=== PATIENT | female | born 1945 | race Caucasian/White ===

== ENCOUNTER 2016-11-20 09:09 | Emergency (ER) | payer OTHER ==
[2016-11-20] MEDS ORDERED: MORPHINE SULFATE INJ 2 MG ONE ×2 (09:42→10:44)
[2016-11-20] MEDS ORDERED: MORPHINE SULFATE INJ 2 MG IVP ONE ×2 (09:42→10:44)
--- NOTE | 2016-11-20 09:57 | DR.GENAD ---
HPI - PCP Primary Care Physician: mandy peraza - HPI Comment HPI Comment: HISTORY BELOW. - Complaint/Symptoms Chief Complaint Doctors Comments: FELL OFF HER BED WHILE SLEEPING AND HIT HER HEAD AND INJURED LOWER BACK. NO LOC. SEVERE PAIN REPORTED. PREBLEM AMBULATING. Chief Complaint:: patient stated she fell of her bed which is 4 foot high and hit her head. she denies any loc. - Nurses notes reviewed Nurses Notes Review: Yes - Source History Provided: Patient, EMS - Mode of Arrival Mode of Arrival: EMS - Timing Onset of Chief Complaint: 11/20/16 Came on: Suddenly - Duration Duration: Constant Duration: Hours - Severity Severity: Moderate PMH - PMH Past Medical History: Yes Past Medical History: Seizures Past Surgical History: Yes - Family History History of Family Medical Conditions: No - Social History Does patient currently use any type of tobacco product: No Have you used tobacco products in the last 12 months: No Type of Tobacco Use: None Does any household member use tobacco: No Alcohol Use: None Do you use any recreational Drugs:: No Lives With: Family Lives Where: Home - infectious screening In the last 2 months have you had wt loss of >10#?: NO Have you had fever, night sweats or hemotysis?: No Have you traveled outside the country in the last 6 months?: No Isolation: Standard ROS - Review of Systems Constitutional: Weakness, Fatigue. negative: Chills, Fever Eyes: No Symptoms Reported. negative: Eye Pain, Discharge ENTM: No Symptoms Reported Respiratoy: Non-Productive Cough, Short of Breath (on exertion). negative: Wheezing, Hemoptysis Cardiovascular: negative: Chest Pain Gastrointestinal/Abdominal: negative: Abdominal Pain, Nausea, Vomiting Genitourinary: negative: Dysuria, Frequency, Hematuria Neurological: Problems Walking Musculoskeletal: Back Pain, Muscle Pain, Back, Pelvis, Hip Integumentary: Other (post scalp hematoma size of orange.) Hematologic/Lymphatic: Easy Bruising Endocrine: No Symptoms Reported All Other Systems: Reviewed and Negative PE - Vital Signs Vitals: Temperature 97.9 F Pulse Rate 61 Respiratory Rate 18 Blood Pressure 138/65 O2 Sat by Pulse Oximetry 96 - General Limitations: No Limitations General Appearance: Alert - Head Head Exam: Other (posterior scalp hematoma, scalp pain) - Eyes Eye exam: Normal Appearance - ENT ENT Exam: Normal External Ear Exam External Ear Exam: Normal External Inspection TM/Canal Exam: Bilateral Normal Mouth Exam: Normal Inspection Throat Exam: Normal Inspection - Neck Neck Exam: Trachea Midline - Chest Chest Inspection: Symmetric Chest Wall Rise - Respiratory Respiratory Exam: Normal Lung Sounds Bilat Respiratory Exam: Bilateral Clear to Auscultation - Cardiovascular Cardiovascular Exam: Regular Rate, Normal Rhythm, Normal Heart Sounds - Abdominal Exam Abdominal Exam: Normal Bowel Sounds, Soft. negative: Tenderness - Extremities Extremities Exam: Tenderness (pelvic tenderness), Joint Swelling (hip tenderness ) - Back Back Exam: Paraspinal Tenderness, Vertebral Tenderness (lumbosacral tenderness) - Neurologic Neurological Exam: Alert, Oriented X3 - Psychiatric Psychiatric Exam: Anxious - Skin Skin Exam: Normal Color MDM - Additional Information Additional Information Obtained From: Family - Differential Diagnosis Differential Diagnosis: multiple contusion and sprain, lumbosacral strain, pelvic pain, scalp contu Course - Treatment Treatment: see orders. - Consultation Consultation Comments: discuss patient with dr. hernández. he will admit patient. - Education/Counseling Education/Counseling: Patient, Family, Education Educated On: Treatment, Diagnosis ROR - Labs Reviewed Laboratory Results Reviewed?: Yes Result Diagrams: 11/20/16 12:47 11/20/16 12:47 Laboratory: WBC 7.4 X10^3/uL (3.6-10.0) 11/20/16 12:47 RBC 4.21 X10^6/uL (3.5-5.4) 11/20/16 12:47 Hgb 12.3 g/dL (12.0-16.0) 11/20/16 12:47 Hct 37.0 % (36.0-47.0) 11/20/16 12:47 MCV 87.8 fL (80.0-100.0) 11/20/16 12:47 MCH 29.2 pg (27.0-34.0) 11/20/16 12:47 MCHC 33.3 g/dL (33.0-35.0) 11/20/16 12:47 RDW 13.6 % (11.6-16.5) 11/20/16 12:47 Plt Count 241 X10^3/uL (150.0-450.0) 11/20/16 12:47 MPV 8.7 fL (7.4-11.0) 11/20/16 12:47 Neut % 58.5 % (42.0-75.0) 11/20/16 12:47 Lymph % 24.6 % (21.0-51.0) 11/20/16 12:47 [place] % 10.3 % (0.0-13.0) 11/20/16 12:47 Eos % 5.7 % (0.9-2.9) H 11/20/16 12:47 Baso % 0.9 % (0.2-1.0) 11/20/16 12:47 Neut # 4.3 x10^3/uL (2.2-4.8) 11/20/16 12:47 Lymph # 1.8 X10^3/uL (1.3-2.9) 11/20/16 12:47 [place] # 0.8 x10^3/uL (0.3-0.8) 11/20/16 12:47 Eos # 0.4 x10^3/uL (0.0-0.2) H 11/20/16 12:47 Baso # 0.1 X10^3/uL (0.0-0.1) 11/20/16 12:47 Absolute Nucleated RBC 0.0 /100WBC 11/20/16 12:47 Sodium 139 mmol/L (136-145) 11/20/16 12:47 Corrected Sodium TNP 11/20/16 12:47 Potassium 4.6 mmol/L (3.5-5.1) 11/20/16 12:47 Chloride 103 mmol/L (98-107) 11/20/16 12:47 Carbon Dioxide 32.3 mmol/L (21-32) H 11/20/16 12:47 BUN 14 mg/dL (7-18) 11/20/16 12:47 Creatinine 0.93 mg/dL (0.55-1.02) 11/20/16 12:47 Est GFR (MDRD) Af Amer > 60 (>60) 11/20/16 12:47 Est GFR (MDRD) Non-Af > 60 (>60) 11/20/16 12:47 Glucose 88 mg/dL (65-99) 11/20/16 12:47 Calcium 8.0 mg/dL (8.5-10.1) L 11/20/16 12:47 - XRAY XRAY Interpreted by: Radiologist XRAY Findings: report noted and discuss with patient and her family. - Diagnosis Discharge Problem: Intractable pain, Multiple contusions, Multiple sprains, Pelvic pain Lumbosacral strain Qualifiers: Encounter type: initial encounter Qualified Code(s): S39.012A - Strain of muscle, fascia and tendon of lower back, initial encounter Scalp contusion Qualifiers: Encounter type: initial encounter Qualified Code(s): S00.03XA - Contusion of scalp, initial encounter Scalp hematoma Qualifiers: Encounter type: initial encounter Qualified Code(s): S00.03XA - Contusion of scalp, initial encounter - Discharge Plan Condition: Stable - Follow ups/Referrals - Instructions
--- NOTE | 2016-11-20 10:21 | CT ---
HEAD CT WITHOUT IV CONTRAST CLINICAL INDICATION: Fall with posterior head trauma and hematoma TECHNIQUE: Axial CT images from skull base to vertex without IV contrast.Dose reduction techniques i ncluding Automated Exposure Control (AEC) and adjustment of mA and kV were utlized. COMPARISON: None FINDINGS: There is no abnormal brain parenchymal density. There is no evidence of acute infarction, intracran ial hemorrhage, mass or mass effect, or abnormal extra-axial collection. The density of the larger d ural venous sinuses is normal. The ventricles are normal in size, shape and position. The skull base and calvarium are normal. The included paranasal sinuses and mastoid air cells are predominantly cl ear. Posterior scalp hematoma present. IMPRESSION: 1. No acute intracranial abnormality. Reported By:
--- NOTE | 2016-11-20 10:39 | CT ---
CT pelvis without contrast Indication: Fall from bed with lower back and coccygeal pain Comparison: None available Technique: Multiple axial images of the pelvis were obtained from the iliac crest to the proximal th igh without administration of IV contrast. Sagittal and coronal reformats were performed and review ed. Radiation dose reduction techniques were performed utilizing adjustment for MA/kVP based on patient body size. Findings: There is no acute fracture within the superior sacrum. The inferior sacrum and coccyx demonstrates b tara remodeling and expansion of the dural sac with subtle cortical irregularity within the left and right paramedian sacral body and coccyx for which either bony remodeling or nondisplaced fractures a re considerations. There is no significant prevertebral soft tissue swelling in this location. There is moderate right and mild to moderate left-sided femoral acetabular osteoarthrosis without acute f racture of the acetabulum femoral head or femoral neck. Pubic symphysis and SI joints demonstrate de generative change without fracture or diastases. Imaging of the abdomen and pelvis demonstrates no a cute inflammatory process. Please see separate CT report for description of lumbar spine findings. IMPRESSION: 1.Moderate bony remodeling and expansion of the thecal sac of the inferior sacrum and coccyx is inde terminate, potentially this represents dural ectasia however the sacrococcygeal mass is also a consi deration for which correlation with contrast-enhanced sacral MRI is recommended for further evaluati on. Given the bony remodeling and cortical irregularity the possibility of a nondisplaced inferior s acral and superior coccygeal fracture cannot be excluded by this examination. There is no large mukund ghislaine or significant presacral soft tissue stranding identified. 2. Moderate right and mild to moderate left-sided femoral acetabular osteoarthrosis without acute fr acture or the abnormal positioning of the femoral heads. Reported By:
--- NOTE | 2016-11-20 10:49 | CT ---
HISTORY: Injury, fall, low back pain Study: CT lumbar spine without contrast Comparison: None Technique: Axial non contrast images with coronal and sagittal reformats. Dose reduction procedures were used with MA/kv adjusted for body size. Findings: The bones are osteopenic. The alignment is normal. The vertebral bodies are of average height. No co mpression fractures are identified. The pedicles, spinous processes, and posterior elements are inta ct. Those portions of the SI joints visualized were normal. That portion of the sacrum visualized wa s normal with the exception of expansion of the sacral spinal canal described in detail on the recen t CT of the pelvis. The disc levels are evaluated as follows: L1-2 level: No evidence for compressive disc disease. The neural foramina are patent. The joints are normal. L2-3 level: No evidence for compressive disc disease. The neural foramina are patent. Bilateral face t arthropathy is present. L3-4 level: There is broad-based disc protrusion which contributes along with ligamentous hypertroph y facet arthropathy and pedicular shortening to a relative spinal stenosis with lateral recess and f oraminal narrowing bilaterally . L4-5 level: Broad-based disc protrusion effaces the thecal sac and contributes along with ligamentou s hypertrophy and facet arthropathy to a relative spinal stenosis with lateral recess and foraminal narrowing bilaterally. L5-S1 level: Broad-based disk bulging effaces the thecal sac and abuts but does not displace the S1 nerve roots. There is spondylitic foraminal narrowing bilaterally. Bilateral facet arthropathy is pr esent. IMPRESSION: As above Reported By:
[2016-11-20 12:58] LABS: BASOPHILS # (AUTO) 0.1 X10^3/uL (0.0-0.1); BASOPHILS % (AUTO) 0.9 % (0.2-1.0); EOSINOPHILS # (AUTO) 0.4 x10^3/uL (0.0-0.2); EOSINOPHILS % (AUTO) 5.7 % (0.9-2.9); HEMOGLOBIN 12.3 g/dL (12.0-16.0); LYMPHOCYTES # (AUTO) 1.8 X10^3/uL (1.3-2.9); LYMPHOCYTES % (AUTO) 24.6 % (21.0-51.0); MEAN CORPUSCULAR HEMOGLOBIN 29.2 pg (27.0-34.0); MEAN CORPUSCULAR HGB CONC 33.3 g/dL (33.0-35.0); MEAN CORPUSCULAR VOLUME 87.8 fL (80.0-100.0); MEAN PLATELET VOLUME 8.7 fL (7.4-11.0); MONOCYTES # (AUTO) 0.8 x10^3/uL (0.3-0.8); MONOCYTES % (AUTO) 10.3 % (0.0-13.0); NEUTROPHILS # (AUTO) 4.3 x10^3/uL (2.2-4.8); NEUTROPHILS % (AUTO) 58.5 % (42.0-75.0); PLATELET COUNT 241 X10^3/uL (150.0-450.0); RED BLOOD COUNT 4.21 X10^6/uL (3.5-5.4); RED CELL DISTRIBUTION WIDTH 13.6 % (11.6-16.5); WHITE BLOOD COUNT 7.4 X10^3/uL (3.6-10.0)
[2016-11-20 12:59] LABS: BLOOD UREA NITROGEN 14 mg/dL (7-18); CARBON DIOXIDE 32.3 mmol/L (21-32); CHLORIDE 103 mmol/L (98-107); CREATININE 0.93 mg/dL (0.55-1.02); GLUCOSE 88 mg/dL (65-99); SODIUM 139 mmol/L (136-145); eGFR BLACK RACES > 60 (>60); eGFR NON BLACK RACES > 60 (>60)
[2016-11-20] MEDS ORDERED: ZOFRAN INJ 4 MG VIAL IVP PRN (13:07)
[2016-11-20] MEDS ORDERED: MORPHINE SULFATE INJ 4 MG IVP PRN (13:07)
[2016-11-20 14:18] LABS: ALANINE AMINOTRANSFERASE 15 Units/L (12-78); ALKALINE PHOSPHATASE 82 Units/L (46-116); ASPARTATE AMINO TRANSFERASE 19 Units/L (15-37); COR CA(FOR HYPOALB) 8.8 mg/dL (8.5-10.1); TOTAL PROTEIN 6.3 g/dL (6.4-8.2)
[2016-11-20] MEDS: NS 1000 ML 1,000 ML IV SCH (14:31)
[2016-11-20 16:20] LABS: BILIRUBIN,URINE NEGATIVE (NEGATIVE); BLOOD/HEMOGLOBIN,URINE NEGATIVE (NEGATIVE); GLUCOSE, URINE NEGATIVE (NEGATIVE); KETONES,URINE NEGATIVE (NEGATIVE); LEUKOCYTE ESTERASE ,URINE 2+ (NEGATIVE); NITRITES,URINE NEGATIVE (NEGATIVE); PROTEIN,URINE NEGATIVE (NEGATIVE); UROBILINOGEN,URINE NORMAL (NORMAL)
[2016-11-20 16:27] LABS: APPEARANCE,URINE HAZY (CLEAR); BACTERIA,URINE TRACE /HPF (NEGATIVE); COLOR,URINE YELLOW (YELLOW); RBC,URINE 0-2 /HPF (NEGATIVE); SQUAMOUS EPITHELIAL CELL,UR FEW /HPF (NEGATIVE)
[2016-11-20] MEDS ORDERED: ULTRAM PO PRN (17:21)
[2016-11-20] MEDS ORDERED: TESSALON PERLES PO PRN (17:59)
[2016-11-20] MEDS ORDERED: COLCRYS TAB 0.6 MG PO PRN (18:00)
[2016-11-20] MEDS ORDERED: NAPROSYN PO PRN (18:16)
[2016-11-20 18:55] VITALS: BMI 47.2
[2016-11-20] MEDS ORDERED: [UNRECOGNIZED DRUG - OTHER] PO SCH (21:00)
[2016-11-20] MEDS ORDERED: COLCRYS TAB 0.6 MG PO SCH (21:00)
[2016-11-20] MEDS ORDERED: NAPROSYN PO SCH ×2 (21:00)
[2016-11-20] MEDS ORDERED: MYSOLINE PO SCH (21:00)
[2016-11-20] MEDS: ESTRACE PO SCH (21:30)
[2016-11-20] MEDS: INDERAL TAB 10 MG PO SCH (21:31)
[2016-11-20] MEDS: FLEXERIL TAB 10 MG PO SCH (21:31)
[2016-11-20] MEDS: MYSOLINE PO SCH (21:34)
[2016-11-20] MEDS: ZANTAC PO SCH (21:35)
[2016-11-20] MEDS: PriLOSEC PO SCH (21:35)
[2016-11-20] MEDS: SINEMET (PLAIN) 25/100 MG PO SCH (21:36)
[2016-11-20] MEDS ORDERED: TESSALON PERLES PO SCH (22:00)
[2016-11-21] MEDS: NS 1000 ML 1,000 ML IV SCH ×2 (02:18→15:13)
[2016-11-21 05:30] LABS: ALANINE AMINOTRANSFERASE 10 Units/L (12-78); ALBUMIN 2.7 g/dL (3.4-5.0); ALKALINE PHOSPHATASE 69 Units/L (46-116); ASPARTATE AMINO TRANSFERASE 14 Units/L (15-37); BLOOD UREA NITROGEN 11 mg/dL (7-18); CALCIUM 7.8 mg/dL (8.5-10.1); CARBON DIOXIDE 28.7 mmol/L (21-32); CHLORIDE 107 mmol/L (98-107); COR CA(FOR HYPOALB) 8.8 mg/dL (8.5-10.1); CREATININE 0.87 mg/dL (0.55-1.02); GLUCOSE 90 mg/dL (65-99); SODIUM 142 mmol/L (136-145); TOTAL PROTEIN 5.8 g/dL (6.4-8.2); eGFR BLACK RACES > 60 (>60); eGFR NON BLACK RACES > 60 (>60)
[2016-11-21 05:34] LABS: BASOPHILS % (AUTO) 0.5 % (0.2-1.0); EOSINOPHILS # (AUTO) 0.4 x10^3/uL (0.0-0.2); EOSINOPHILS % (AUTO) 6.8 % (0.9-2.9); HEMATOCRIT 34.3 % (36.0-47.0); HEMOGLOBIN 11.4 g/dL (12.0-16.0); LYMPHOCYTES # (AUTO) 2.4 X10^3/uL (1.3-2.9); MEAN CORPUSCULAR HEMOGLOBIN 29.2 pg (27.0-34.0); MEAN CORPUSCULAR HGB CONC 33.1 g/dL (33.0-35.0); MEAN CORPUSCULAR VOLUME 88.2 fL (80.0-100.0); MONOCYTES # (AUTO) 0.8 x10^3/uL (0.3-0.8); MONOCYTES % (AUTO) 11.5 % (0.0-13.0); NEUTROPHILS % (AUTO) 45.2 % (42.0-75.0); PLATELET COUNT 215 X10^3/uL (150.0-450.0); RED BLOOD COUNT 3.89 X10^6/uL (3.5-5.4); RED CELL DISTRIBUTION WIDTH 13.8 % (11.6-16.5); WHITE BLOOD COUNT 6.6 X10^3/uL (3.6-10.0)
[2016-11-21] MEDS: SINEMET (PLAIN) 25/100 MG PO SCH ×3 (05:55→21:19)
[2016-11-21] MEDS ORDERED: ESTRACE PO SCH (09:00)
[2016-11-21] MEDS ORDERED: LASIX PO SCH (09:00)
[2016-11-21] MEDS: INDERAL TAB 10 MG PO SCH ×4 (09:11→21:22)
[2016-11-21] MEDS: MYSOLINE PO SCH ×2 (09:12→21:19)
[2016-11-21] MEDS: PriLOSEC PO SCH ×2 (09:12→21:18)
[2016-11-21] MEDS: LASIX PO SCH (09:12)
[2016-11-21] MEDS: ZESTRIL TAB 10 MG PO SCH (09:12)
--- NOTE | 2016-11-21 14:18 | DR.H&P ---
H&P - History & Physical for Day of: H&P Date: 11/20/16 - Chief Complaint Chief Complaint: FALL, HEAD INJURY, LOWER BACK PAIN - Allergies Allergies/Adverse Reactions: Allergies Allergy/AdvReac Type Severity Reaction Status Date / Time Cephalexin [From Keflex] Allergy Verified 01/13/15 09:44 Oxytetracycline Allergy Verified 01/13/15 09:44 [From Terramycin Vaginal] Polymyxin B Allergy Verified 01/13/15 09:44 [From Terramycin Vaginal] - History of Present Illness History of Present Illness: THIS IS A 71 YEAR OLD FEMALE, WHO IS A PATIENT OF OURS. SHE PRESENTS TO THE EMERGENCY ROOM, VIA EMS, WITH COMPLAINTS OF A FALLING OFF HER BED AT HOME AND HITTING HER HEAD AND BACK PAIN. SHE STATES HER BED IS APPROXIMATELY FOUR FEET HIGH AND SHE FELL OFF AND HIT A CONCRETE FLOOR. SHE DENIES LOSS OF CONSCIOUSNESS. ON EXAMINATION, A SCALP HEMATOMA AND CONTUSION IS NOTED TO HER HEAD. SHE REPORTS SEVERE BACK PAIN ON ARRIVAL TO ER AND SHE IS NOTED WITH AN UNSTEADY GAIT. LABS AND CT OBTAINED. CBC WNL. CMP WNL EXCEPT: CARBON DIOXIDE 32.3, CALCIUM 8.0, TOT PROTEIN 6.3, ALBUMIN 3.0. URINALYSIS WNL. BRAIN CT REPROTS NO ACUTE INTRACRANIAL ABNORMALITY. CT OF LUMBAR SPINE REPORTS NO COMPRESSION FRACUTRES IDENITIFIED. CT OF PELVIS REPORTS BONY REMODELING AND CORTICAL IRREGULARITY; POSSIBLITY OF A NONDISPLACED INFERIOR SACRAL AND SUPERIOR COCCYGEAL FRACTURE CANNOT BE EXCLUDED; MODERATE RIGHT AND MILD TO MODERATE LEFT-SIDED FEMORAL ACETABULAR OSTEOARTHROSIS WITHOUT ACUTE FRACTURE OR ABNORMAL POSITIONING OF THE FEMORAL HEADS. WE WILL ADMIT PATIENT FOR FURTHER TREATMENT AND EVALUATION. WE WILL FOLLOW UP IN AM WITH LABS. - Past Medical History Past Medical History: Anxiety, Arthritis, Depression, GERD, Gout, Hypertension, Seizures Additional Medical History: Ear Infections, Epilepsy, Bronchitis, Pneumonia, Diarrhea, Urinary Tract Infections, Back Pain, Skin Cancer - Past Surgical History Surgical History: Hysterectomy, Joint Replacement, Other Additional Surgical History: Lapband, Right TKA, Removal of Skin Cancer - Family History Family Medical History: Diabetes Mellitus, Cancer, [place], Coronary Artery Disease, Hypertension - Social History Does patient currently use any type of tobacco product: No Have you used tobacco products in the last 12 months: No Type of Tobacco Use: Cigarettes How many years tobacco product used: 43 Does any household member use tobacco: No Alcohol Use: None Drug Use: Prescription Drugs - Medications Home Medications: Cyclobenzaprine HCl [FLEXERIL 10 MG *] 10 mg PO HS 01/13/15 Diclofenac Sodium [Diclofenac Sodium Dr] 50 mg PO BID 01/13/15 Ergocalciferol [Vitamin D] 50,000 unt PO WEEKLY 01/13/15 Estradiol 0.5 mg PO HS 01/13/15 Furosemide [LASIX TAB 40 MG *] 60 mg PO QAM 01/13/15 Lisinopril 10 mg PO DAILY 01/13/15 Omeprazole [PRILOSEC 20 MG *] 20 mg PO BID 01/13/15 Ranitidine HCl [Zantac] 300 mg PO HS 01/13/15 Benzonatate 100 mg PO TID PRN 11/20/16 Carbamazepine [Tegretol] 200 mg PO DAILY 11/20/16 Carbidopa-Levodopa 25/100 mg [Sinemet (Plain) 25/100 mg] 1 tab PO TID Colchicine [Colcrys Tab 0.6 mg] 1 tab PO BID PRN 11/20/16 Primidone 100 mg PO BID 11/20/16 Propranolol HCl 80 mg PO QID 11/20/16 Tramadol HCl 50 - 100 mg PO Q6HR PRN 11/20/16 - Review of Systems Constitutional: Weakness, Malaise Eyes: No Symptoms Reported. denies: Pain, Vision Change, Conjunctivae Inflammation, Eyelid Inflammation, Redness ENT: No Symptoms Reported. denies: Ear Pain, Ear Discharge, Nose Pain, Nose Discharge, Nose Congestion, Mouth Pain, Mouth Swelling, Throat Pain, Throat Swelling Respiratory: No Symptoms Reported. denies: Cough, Shortness of Breath, Hemoptysis, SOB with Excertion, Pleuritic Pain, Sputum, Wheezing Cardiovascular: No Symptoms Reported. denies: Chest Pain, Palpitations, Orthopnea, Paroxysmal Noc. Dyspnea, Edema, Light Headedness Gastrointestinal: No Symptoms Reported. denies: Nausea, Vomiting, Abdominal Pain, Diarrhea, Constipation, Melena, Hematochezia Genitourinary: No Symptoms Reported. denies: Dysuria, Frequency, Incontinence, Hematuria, Retention Musculoskeletal: Back Pain, Other (Sacral Pain; Pelvis Pain; Head Ache) Skin: No Symptoms Reported. denies: Rash, Lesions, Jaundice, Bruising, Wound, Ecchymosis Neurological: No Symptoms Reported. denies: Weakness, Numbness, Incoordination , Change in Speech, Confusion, Seizures - Physical Exam Vital Signs: Temperature 97.8 F Pulse Rate [Right Brachial] 60 Respiratory Rate 22 Blood Pressure [Right Arm] 121/58 O2 Sat by Pulse Oximetry 95 Oriented: Normal, Time, Person, Place Eyes: Normal. negative: Blurred Vision, Diplopia, Discharge, Pain, Redness, Photophobia Ear: Normal. negative: Swelling, Ecchymosis, Hemotypanum, Abrasion, Laceration Nose: Normal. negative: Injected, Discharge, Blood Throat: Normal. negative: Tonsillar Hypertrophy, Red, Exudate Respiratory: Clear Throughout Cardiovascular: Normal. negative: Murmur, Edema : Normal. negative: Dysuria, Hematuria, Frequency, Discharge, Bleeding, Auscultation: Bowel Sounds: Normal. negative: Bruit Palpation: Normal. negative: Spleen Enlarged, Liver Enlarged, Mass Pulsatile Tenderness: Normal. negative: Rebound, Guarding, Rigidity Skin: Bruising (Scattered) Musculoskeletal: Back:Lumbar (Sacal), Pelvis, Tender, Instability. negative: Deformity, Pulse Deficit, Motor Deficit, Sensory Deficit Psychiatric: Normal Mood Description: Calm, Appropriate Affect: Normal Speech Pattern: Clear, Appropriate - Assessment/Plan (1) Intractable pain Status: Acute Plan: ADMIT PATIENT, START MORPHINE IV NEEDED, NAPROXEN, CONSULT PHYSICAL THERAPY, IV FLUIDS, MONITOR. (2) Lumbosacral strain Qualifiers: Encounter type: initial encounter Qualified Code(s): S39.012A - Strain of muscle, fascia and tendon of lower back, initial encounter Status: Acute Plan: ABOVE. (3) Multiple contusions Status: Acute Plan: ABOVE. (4) Multiple sprains Status: Acute Plan: ABOVE. (5) Pelvic pain Status: Acute Plan: ABOVE. (6) Scalp contusion Qualifiers: Encounter type: initial encounter Qualified Code(s): S00.03XA - Contusion of scalp, initial encounter Status: Acute Plan: CONTINUE TO MONITOR. (7) Scalp hematoma Qualifiers: Encounter type: initial encounter Qualified Code(s): S00.03XA - Contusion of scalp, initial encounter Status: Acute Plan: CONTINUE TO MONITOR. (8) Back pain Qualifiers: Back pain location: low back pain Chronicity: acute Back pain laterality : bilateral Sciatica presence: without sciatica Sciatica laterality: S Qualified Code(s): M54.5 - Low back pain Status: Chronic Plan: ABOVE. (9) HTN (hypertension) Qualifiers: Hypertension type: essential hypertension Qualified Code(s): I10 - Essential (primary) hypertension Status: Chronic (10) GERD (gastroesophageal reflux disease) Qualifiers: Esophagitis presence: esophagitis presence not specified Qualified Code(s) : K21.9 - Gastro-esophageal reflux disease without esophagitis Status: Chronic (11) Gout Qualifiers: Gout site: multiple sites Gout etiology: G Encounter type: E Laterality : L Chronicity: C Presence of tophus: P Status: Chronic (12) Arthritis Status: Chronic
[2016-11-21] MEDS ORDERED: COLACE CAP 100 MG PO SCH (15:00)
--- NOTE | 2016-11-21 15:05 | PCM.PROG ---
Progress Note - Progress Note for Day of Date: 11/21/16 - Subjective Subjective: PATIENT CONTINUES TO REPORTS PELVIC PAIN AND GENERALIZED MUSCLE PAIN. THE SCALP HEMATOMA AND CONTUSION IS HEALING AND REDUCING IN SIZE. ON EXAMINATION, PELVIS IS NOTED WITH MODERATE TENDERNESS AND LUMBAR BACK PAIN IS MODERATELY TENDER. PATIENT IS RECEIVING MORPHINE IV FOR PAIN ALONG WITH FLEXERIL AND NAPROXEN. CT OF PELVIS YESTERDAY COULD NOT RULE OUT A PELVIC FRACTURE. CBC WNL EXCEPT: H/H 11.4/34.3. CMP WNL EXCEPT: CALCIUM 7.8, TOT PROTEIN 5.8, ALBUMIN 2.7. WE WILL PLAN FOR AN MRI OF PELVIS TODAY, CONTINUE CURRENT TREATMENT, AND FOLLOW UP IN AM WITH LABS. - Past Medical Family Social History Past Med/Fam/Surg Hx: No changes since H&P Allergies: Allergies Cephalexin [From Keflex] Allergy (Verified 01/13/15 09:44) Oxytetracycline [From Terramycin Vaginal] Allergy (Verified 01/13/15 09:44) Polymyxin B [From Terramycin Vaginal] Allergy (Verified 01/13/15 09:44) - Review of Systems ROS: No change since H&P - Vital Signs and I&O's Vital Signs: Temperature 97.8 F Pulse Rate [Right Brachial] 60 Respiratory Rate 22 Blood Pressure [Right Arm] 121/58 O2 Sat by Pulse Oximetry 95 Intake and Output: Intake & Output 11/19/16 11/20/16 11/21/16 11/22/16 11:59 11:59 11:59 11:59 Intake Total 1280 1320 Output Total 601 1250 Balance 679 70 - Physical Exam Oriented: Normal, Time, Person, Place Eyes: Normal. negative: Blurred Vision, Diplopia, Discharge, Pain, Redness, Photophobia Ear: Normal. negative: Swelling, Ecchymosis, Hemotypanum, Abrasion, Laceration Nose: Normal. negative: Injected, Discharge, Blood Throat: Normal. negative: Tonsillar Hypertrophy, Red, Exudate Cardiovascular: Normal. negative: Murmur, Edema : Normal. negative: Dysuria, Hematuria, Frequency, Discharge, Bleeding, Auscultation: Bowel Sounds: Normal. negative: Bruit Palpation: Normal. negative: Spleen Enlarged, Liver Enlarged, Mass Pulsatile Tenderness: Normal. negative: Rebound, Guarding, Rigidity Skin: Bruising (Scattered) Musculoskeletal: Back:Lumbar (Sacal), Pelvis, Tender, Instability. negative: Deformity, Pulse Deficit, Motor Deficit, Sensory Deficit Psychiatric: Normal Mood Description: Calm, Appropriate Affect: Normal Speech Pattern: Clear, Appropriate - Laboratory and Diagnostics Result Diagrams: 11/21/16 04:40 11/21/16 04:40 Labs: Laboratory WBC 6.6 X10^3/uL (3.6-10.0) 11/21/16 04:40 RBC 3.89 X10^6/uL (3.5-5.4) 11/21/16 04:40 Hgb 11.4 g/dL (12.0-16.0) L 11/21/16 04:40 Hct 34.3 % (36.0-47.0) L 11/21/16 04:40 MCV 88.2 fL (80.0-100.0) 11/21/16 04:40 MCH 29.2 pg (27.0-34.0) 11/21/16 04:40 MCHC 33.1 g/dL (33.0-35.0) 11/21/16 04:40 RDW 13.8 % (11.6-16.5) 11/21/16 04:40 Plt Count 215 X10^3/uL (150.0-450.0) 11/21/16 04:40 MPV 9.0 fL (7.4-11.0) 11/21/16 04:40 Neut % 45.2 % (42.0-75.0) 11/21/16 04:40 Lymph % 36.0 % (21.0-51.0) 11/21/16 04:40 [place] % 11.5 % (0.0-13.0) 11/21/16 04:40 Eos % 6.8 % (0.9-2.9) H 11/21/16 04:40 Baso % 0.5 % (0.2-1.0) 11/21/16 04:40 Neut # 3.0 x10^3/uL (2.2-4.8) 11/21/16 04:40 Lymph # 2.4 X10^3/uL (1.3-2.9) 11/21/16 04:40 [place] # 0.8 x10^3/uL (0.3-0.8) 11/21/16 04:40 Eos # 0.4 x10^3/uL (0.0-0.2) H 11/21/16 04:40 Baso # 0.0 X10^3/uL (0.0-0.1) 11/21/16 04:40 Absolute Nucleated RBC 0.1 /100WBC 11/21/16 04:40 Sodium 142 mmol/L (136-145) 11/21/16 04:40 Corrected Sodium TNP 11/21/16 04:40 Potassium 4.4 mmol/L (3.5-5.1) 11/21/16 04:40 Chloride 107 mmol/L (98-107) 11/21/16 04:40 Carbon Dioxide 28.7 mmol/L (21-32) 11/21/16 04:40 BUN 11 mg/dL (7-18) 11/21/16 04:40 Creatinine 0.87 mg/dL (0.55-1.02) 11/21/16 04:40 Est GFR (MDRD) Af Amer > 60 (>60) 11/21/16 04:40 Est GFR (MDRD) Non-Af > 60 (>60) 11/21/16 04:40 Glucose 90 mg/dL (65-99) 11/21/16 04:40 Calcium 7.8 mg/dL (8.5-10.1) L 11/21/16 04:40 Corrected Calcium 8.8 mg/dL (8.5-10.1) 11/21/16 04:40 Total Bilirubin 0.20 mg/dL (0.2-1.0) 11/21/16 04:40 AST 14 Units/L (15-37) L 11/21/16 04:40 ALT 10 Units/L (12-78) L 11/21/16 04:40 Alkaline Phosphatase 69 Units/L (46-116) 11/21/16 04:40 Total Protein 5.8 g/dL (6.4-8.2) L 11/21/16 04:40 Albumin 2.7 g/dL (3.4-5.0) L 11/21/16 04:40 Globulin 3.1 g/dL (2.5-4.5) 11/21/16 04:40 Albumin/Globulin Ratio 0.9 Ratio (1.1-2.1) L 11/21/16 04:40 Specimen Type Clean catch urine 11/20/16 15:57 Urine Color Yellow (YELLOW) 11/20/16 15:57 Urine Appearance Hazy (CLEAR) 11/20/16 15:57 Urine pH 6.0 (5.0 - 8.0) 11/20/16 15:57 Ur Specific [place] 1.010 (1.000-1.030) 11/20/16 15:57 Urine Protein Negative (NEGATIVE) 11/20/16 15:57 Urine Glucose (UA) Negative (NEGATIVE) 11/20/16 15:57 Urine Ketones Negative (NEGATIVE) 11/20/16 15:57 Urine Occult Blood Negative (NEGATIVE) 11/20/16 15:57 Urine Nitrite Negative (NEGATIVE) 11/20/16 15:57 Urine Bilirubin Negative (NEGATIVE) 11/20/16 15:57 Urine Urobilinogen Normal (NORMAL) 11/20/16 15:57 Ur Leukocyte Esterase 2+ (NEGATIVE) 11/20/16 15:57 Urine RBC 0-2 /HPF (NEGATIVE) 11/20/16 15:57 Urine WBC 3-5 /HPF (NEGATIVE) 11/20/16 15:57 Ur Squamous Epith Cells Few /HPF (NEGATIVE) 11/20/16 15:57 Urine Bacteria Trace /HPF (NEGATIVE) 11/20/16 15:57 Ur Culture Indicated? No/not indicated 11/20/16 15:57 - Plan (1) Intractable pain Status: Acute Plan: CONTINUE MORPHINE IV NEEDED, NAPROXEN, FLEXERIL, CONSULT PHYSICAL THERAPY, IV FLUIDS, MONITOR. (2) Lumbosacral strain Status: Acute Qualifiers: Encounter type: initial encounter Qualified Code(s): S39.012A - Strain of muscle, fascia and tendon of lower back, initial encounter Plan: ABOVE. (3) Multiple contusions Status: Acute Plan: ABOVE. (4) Multiple sprains Status: Acute Plan: ABOVE. (5) Pelvic pain Status: Acute Plan: ABOVE. (6) Scalp contusion Status: Acute Qualifiers: Encounter type: initial encounter Qualified Code(s): S00.03XA - Contusion of scalp, initial encounter Plan: CONTINUE TO MONITOR. (7) Scalp hematoma Status: Acute Qualifiers: Encounter type: initial encounter Qualified Code(s): S00.03XA - Contusion of scalp, initial encounter Plan: CONTINUE TO MONITOR. (8) Back pain Status: Chronic Qualifiers: Back pain location: low back pain Chronicity: acute Back pain laterality : bilateral Sciatica presence: without sciatica Sciatica laterality: S Qualified Code(s): M54.5 - Low back pain Plan: ABOVE. (9) HTN (hypertension) Status: Chronic Qualifiers: Hypertension type: essential hypertension Qualified Code(s): I10 - Essential (primary) hypertension (10) GERD (gastroesophageal reflux disease) Status: Chronic Qualifiers: Esophagitis presence: esophagitis presence not specified Qualified Code(s) : K21.9 - Gastro-esophageal reflux disease without esophagitis (11) Gout Status: Chronic Qualifiers: Gout site: multiple sites Gout etiology: G Encounter type: E Laterality : L Chronicity: C Presence of tophus: P (12) Arthritis Status: Chronic
[2016-11-21] MEDS ORDERED: MILK OF MAGNESIA PO SCH (17:00)
[2016-11-21] MEDS ORDERED: MIRALAX POWDER (1 DOSE 17GM) PO SCH (21:00)
[2016-11-21] MEDS: ZANTAC PO SCH (21:18)
[2016-11-21] MEDS: FLEXERIL TAB 10 MG PO SCH (21:18)
[2016-11-21] MEDS: ESTRACE PO SCH (21:18)
[2016-11-21] MEDS: TORADOL 30 MG VIAL IVP PRN (21:48)
[2016-11-22] MEDS: TORADOL 30 MG VIAL IVP PRN (04:24)
[2016-11-22] MEDS: NS 1000 ML 1,000 ML IV SCH (04:24)
[2016-11-22 05:19] LABS: ALANINE AMINOTRANSFERASE 8 Units/L (12-78); ALBUMIN 2.8 g/dL (3.4-5.0); ALKALINE PHOSPHATASE 68 Units/L (46-116); ASPARTATE AMINO TRANSFERASE 12 Units/L (15-37); BLOOD UREA NITROGEN 13 mg/dL (7-18); CARBON DIOXIDE 30.6 mmol/L (21-32); CHLORIDE 107 mmol/L (98-107); CREATININE 1.06 mg/dL (0.55-1.02); GLUCOSE 91 mg/dL (65-99); SODIUM 145 mmol/L (136-145); TOTAL PROTEIN 6.2 g/dL (6.4-8.2); eGFR BLACK RACES > 60 (>60); eGFR NON BLACK RACES 54 (>60)
[2016-11-22] MEDS: SINEMET (PLAIN) 25/100 MG PO SCH ×2 (05:19→14:28)
[2016-11-22 05:22] LABS: BASOPHILS # (AUTO) 0.1 X10^3/uL (0.0-0.1); BASOPHILS % (AUTO) 0.7 % (0.2-1.0); EOSINOPHILS # (AUTO) 0.5 x10^3/uL (0.0-0.2); EOSINOPHILS % (AUTO) 5.5 % (0.9-2.9); HEMATOCRIT 36.4 % (36.0-47.0); LYMPHOCYTES # (AUTO) 2.2 X10^3/uL (1.3-2.9); LYMPHOCYTES % (AUTO) 26.6 % (21.0-51.0); MEAN CORPUSCULAR HGB CONC 33.1 g/dL (33.0-35.0); MEAN CORPUSCULAR VOLUME 87.5 fL (80.0-100.0); MONOCYTES # (AUTO) 0.9 x10^3/uL (0.3-0.8); MONOCYTES % (AUTO) 11.1 % (0.0-13.0); NEUTROPHILS # (AUTO) 4.6 x10^3/uL (2.2-4.8); NEUTROPHILS % (AUTO) 56.1 % (42.0-75.0); PLATELET COUNT 241 X10^3/uL (150.0-450.0); RED BLOOD COUNT 4.15 X10^6/uL (3.5-5.4); RED CELL DISTRIBUTION WIDTH 13.9 % (11.6-16.5); WHITE BLOOD COUNT 8.2 X10^3/uL (3.6-10.0)
--- NOTE | 2016-11-22 08:50 | MRI ---
MRI pelvis with contrast Indication: Pelvic pain after recent fall. Bony remodeling on CT. Comparison: CT pelvis 11/20/2016 Technique: Multiplanar, multisequence MR images of the pelvis were obtained before and after IV cont rast administration. Findings: There is re-demonstration of the chronic appearing bony remodeling about the sacrococcygea l junction associated with canal and neural foraminal expansion, related to thecal sac enlargement. No definite soft tissue mass or suspicious enhancement identified. No displaced fra cture is seen. There is some mild periarticular edema about the right SI joint, likely secondary to degenerative disease. There are degenerative changes of the hips, slightly worse on the right, where there is a small join t effusion noted, likely reactive. There is no acute hip fracture or subluxation. Mild gluteus mediu s tendinosis is noted bilaterally. There is insertional hamstring tendinopathy, worse on the right. Impression: 1. 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 No acute skeletal injury or aggressive osseous lesion identified. 2. Degenerative changes of the hips, right greater than left. Bilateral gluteus medius tendinosis, h amstring tendinopathy. Reported By:
[2016-11-22] MEDS ORDERED: PROTONIX INJ 40 MG VIAL IVP SCH (09:17)
[2016-11-22] MEDS: PATIENT'S HOME MEDICATION PO SCH ×2 (09:32→13:45)
[2016-11-22] MEDS: ZESTRIL TAB 10 MG PO SCH (09:32)
[2016-11-22] MEDS: MYSOLINE PO SCH (09:33)
[2016-11-22] MEDS: TORADOL 30 MG VIAL IVP SCH ×2 (09:57→14:29)
[2016-11-22] MEDS: LASIX PO SCH (11:27)
[2016-11-22 14:28] VITALS: BP 150/63
== END 2016-11-22 15:05 | disposition home or self-care (01) ==
LOC: ER 09:09 → MED/SURG 13:05
PROVIDERS: ADMIT Internal Medicine; ATTEND Internal Medicine
DX: S39.012A Strain of muscle, fascia and tendon of lower back, initial encounter (principal); S00.03XA Contusion of scalp, initial encounter; R10.2 Pelvic and perineal pain; R52 Pain, unspecified; W06.XXXA Fall from bed, initial encounter; Y92.018 Other place in single-family (private) house as the place of occurrence of the external cause; R26.81 Unsteadiness on feet; M13.89 Other specified arthritis, multiple sites; K21.9 Gastro-esophageal reflux disease without esophagitis; I10 Essential (primary) hypertension; M54.5 Low back pain; M10.09 Idiopathic gout, multiple sites; M79.1 Myalgia
CPT/HCPCS: 36415; 70450; 72131; 72192; 72196; 80053; 81001; 85025; 94760; 96365; 96374; 96375; 99284; A4222; C9113; G0378; J1885; J2270

== ENCOUNTER → 2017-02-21 | Outpatient (CLI) | payer OTHER ==
--- NOTE | 2017-02-22 13:09 | MG ---
HISTORY: SCREENING Comparison: Multiple mammograms dating back to July 23, 2014. FINDINGS: Bilateral CC and MLO projections of the right and left breast were obtained. Predominately fatty fi broglandular tissue is seen to be present. No significant architectural distortion, mass or cluster ed microcalcifications can be observed to suggest malignancy. No skin thickening or nipple retracti on is appreciated. No pathological lymphadenopathy can be identified. Benign-appearing calcificati ons scattered throughout the right and left breasts are observed. Stable appearing postsurgical lam ges within the central right breast. IMPRESSION: NO RADIOGRAPHIC EVIDENCE OF MALIGNANCY. ACR CATEGORY: 2 - benign findings. FOLLOW-UP EXAM 1 YEAR. Diagnostic CAD was utilized and reviewed. * 0 (ZERO) - ASSESSMENT INCOMPLETE; ADDITIONAL IMAGING IS NEEDED. * 1/1 (ONE) - NEGATIVE. * 2/II (TWO) - BENIGN FINDINGS. * 3/III (THREE) - PROBABLY BENIGN FINDING; SHORT INTERVAL FOLLOW-UP SUGGESTED. * 4/IV (FOUR) - SUSPICIOUS ABNORMALITY; BIOPSY SHOULD BE CONSIDERED. * 5/V - HIGHLY SUSPICIOUS OF MALIGNANCY; BIOPSY SHOULD BE PERFORMED. A NEGATIVE X-RAY REPORT SHOULD NOT DELAY BIOPSY IF A DOMINANT OR CLINICALLY SUSPICIOUS MASS IS PRESENT; 4 TO 8 PERCENT OF CANCERS ARE NOT IDENTIFIED BY X-RAY. A NEG ATIVE REPORT MAY REINFORCE THE CLINICAL IMPRESSION. ADENOSIS AND DENSE BREASTS MAY OBSCURE AN UNDER LYING NEOPLASM. Reported By:
== END ==
LOC: RAD 14:55
PROVIDERS: ATTEND Nurse Practitioner Family
DX: Z12.31 Encounter for screening mammogram for malignant neoplasm of breast (principal)
CPT/HCPCS: 77067

== ENCOUNTER 2021-05-08 02:44 | Inpatient (IN) ==
[2021-05-08 03:10] VITALS: BMI 49.4
--- NOTE | 2021-05-08 03:14 | DR.AMS ---
HPI Time Seen Time Seen by Provider: 05/08/21 03:14 PCP Primary Care Physician: TACO ROBLEDO HPI Comment HPI Comment: PATIENT IS 75YR OLD FEMALE, Complaint Cheif Complaint Doctors Comments: AMS. Chief Complaint:: PT IN ED VIA STRETCHER PER [facility] WITH AMS. PER EMS PT WAS CALLED OUT FOR LIFT ASSIST. PT WAS ON TOILET AND COULDN'T GET HER BACK TO BED. PT WAS NOT ANSWERING QUESTIONS APPROPRIATELY. COVID-19 Coronavirus risk:travel/contact w/high risk person: No Has patient experienced Coronavirus symptoms: No Source History Provided: EMS Mode of Arrival Mode of Arrival: Stretcher Timing Onset of Chief Complaint: 05/08/21 PMH PMH Past Medical History: Yes Past Medical History: Anxiety, Arthritis, Depression, GERD, Gout, Hypertension and Seizures Past Surgical History: Yes Surgical History: Hysterectomy, Joint Replacement and Other Past Surgical History Comment: RIGHT KNEE Family History History of Family Medical Conditions: Yes Family Medical History: Diabetes Mellitus, Cancer, MD, Coronary Artery Disease and Hypertension Social History Does patient currently use any type of tobacco product: No Have you used tobacco products in the last 12 months: No Type of Tobacco Use: None Does any household member use tobacco: No Alcohol Use: None Do you use any recreational Drugs:: No Lives With: Spouse Lives Where: Home Travel Risk Coronavirus risk:travel/contact w/high risk person: No Has patient experienced Coronavirus symptoms: No Infectious screening In the last 2 months have you had wt loss of >10#?: NO Have you had fever, night sweats or hemotysis?: No Have you traveled outside the country in the last 6 months?: No Isolation: Standard ROS Review of Systems Constitutional: No Symptoms Reported and See HPI Eyes: No Symptoms Reported and See HPI ENTM: No Symptoms Reported and See HPI Respiratoy: No Symptoms Reported and See HPI Cardiovascular: No Symptoms Reported and See HPI Gastrointestinal/Abdominal: No Symptoms Reported and See HPI Genitourinary: No Symptoms Reported and See HPI Neurological: No Symptoms Reported and See HPI Musculoskeletal: No Symptoms Reported and See HPI Integumentary: No Symptoms Reported and See HPI Hematologic/Lymphatic: No Symptoms Reported and See HPI Endocrine: No Symptoms Reported and See HPI Psychiatric: No Symptoms Reported and See HPI All Other Systems: Reviewed and Negative PE Vitals Vital Signs: Temp Pulse Resp BP BP Pulse Ox 05/08/21 06:45 74 95 05/08/21 06:30 74 193/80 96 05/08/21 06:24 99.6 F 05/08/21 06:22 75 188/81 97 05/08/21 06:21 75 203/79 97 05/08/21 06:15 75 96 05/08/21 06:14 76 169/131 96 05/08/21 06:00 79 95 05/08/21 05:55 77 95 05/08/21 05:31 197/101 05/08/21 05:30 78 97 05/08/21 05:15 81 96 05/08/21 05:00 79 193/96 97 05/08/21 04:53 81 191/109 97 05/08/21 04:51 80 222/187 97 05/08/21 04:47 81 95 05/08/21 04:30 75 94 L 05/08/21 04:25 75 197/77 93 L 05/08/21 04:21 101 H 81 L 05/08/21 04:00 77 92 L 05/08/21 03:56 178/74 05/08/21 03:55 94 L 05/08/21 03:37 80 L 05/08/21 03:21 79 94 L 05/08/21 02:51 100.9 F H 80 22 151/76 96 01/05/21 20:23 130/58 General Limitations: Language Barrier General Appearance: Alert Head Head Exam: Normal Inspection Eyes Eye exam: Normal Appearance ENT ENT Exam: Normal Exam External Ear Exam: Normal External Inspection Nose Exam: Normal Nose Exam Mouth Exam: Normal Inspection Throat Exam: Normal Inspection Neck Neck Exam: Normal Inspection Chest Chest Inspection: Normal Inspection Respiratory Respiratory Exam: Normal Lung Sounds Bilat Cardiovascular Cardiovascular Exam: Regular Rate and Normal Rhythm Abdominal Exam Abdominal Exam: Normal Inspection, Normal Bowel Sounds and Soft Extremities Extremities Exam: Normal Inspection Back Back Exam: Normal Inspection Neurological Neurological Exam: Alert and Oriented X3 Psychological Psychiatric Exam: Normal Affect and Normal Mood Skin Skin Exam: Warm, Dry, Intact and Normal Color ROR Labs Reviewed Result Diagrams: 05/10/21 05:05 05/10/21 12:46 Laboratory: WBC 10.8 X10^3/uL (3.6-10.0) H 05/08/21 03:10 RBC 4.68 X10^6/uL (3.5-5.4) 05/08/21 03:10 Hgb 14.8 g/dL (12.0-16.0) 05/08/21 03:10 Hct 42.3 % (36.0-47.0) 05/08/21 03:10 MCV 90.4 fL (80.0-100.0) 05/08/21 03:10 MCH 31.6 pg (27.0-34.0) 05/08/21 03:10 MCHC 34.9 g/dL (33.0-35.0) 05/08/21 03:10 RDW 13.9 % (11.6-16.5) 05/08/21 03:10 Plt Count 264 X10^3/uL (150.0-450.0) 05/08/21 03:10 MPV 8.3 fL (7.4-11.0) 05/08/21 03:10 Neut % (Auto) 84.5 % (42.0-75.0) H 05/08/21 03:10 Lymph % (Auto) 6.5 % (21.0-51.0) L 05/08/21 03:10 [place] % (Auto) 8.1 % (0.0-13.0) 05/08/21 03:10 Eos % (Auto) 0.6 % (0.9-2.9) L 05/08/21 03:10 Baso % (Auto) 0.3 % (0.2-1.0) 05/08/21 03:10 Neut # (Auto) 9.1 x10^3/uL (2.2-4.8) H 05/08/21 03:10 Lymph # (Auto) 0.7 X10^3/uL (1.3-2.9) L 05/08/21 03:10 [place] # (Auto) 0.9 x10^3/uL (0.3-0.8) H 05/08/21 03:10 Eos # (Auto) 0.1 x10^3/uL (0.0-0.2) 05/08/21 03:10 Baso # (Auto) 0.0 X10^3/uL (0.0-0.1) 05/08/21 03:10 Absolute Nucleated RBC 0.0 /100WBC 05/08/21 03:10 Sodium 141 mmol/L (136-145) 05/08/21 03:10 Corrected Sodium 142 mmol/L (136-145) 05/08/21 03:10 Potassium 2.2 mmol/L (3.5-5.1) L* 05/08/21 03:10 Chloride 95 mmol/L (98-107) L 05/08/21 03:10 Carbon Dioxide 42.0 mmol/L (21-32) H* 05/08/21 03:10 BUN 9 mg/dL (7-18) 05/08/21 03:10 Creatinine 0.81 mg/dL (0.55-1.02) 05/08/21 03:10 Est GFR (MDRD) Af Amer > 60 (>60) 05/08/21 03:10 Est GFR (MDRD) Non-Af > 60 (>60) 05/08/21 03:10 Glucose 130 mg/dL (65-99) H 05/08/21 03:10 Calcium 8.6 mg/dL (8.5-10.1) 05/08/21 03:10 Corrected Calcium 9.2 mg/dL (8.5-10.1) 05/08/21 03:10 Total Bilirubin 0.50 mg/dL (0.2-1.0) 05/08/21 03:10 AST 57 Units/L (15-37) H 05/08/21 03:10 ALT 54 Units/L (12-78) 05/08/21 03:10 Alkaline Phosphatase 88 Units/L (46-116) 05/08/21 03:10 B-Natriuretic Peptide 210 pg/mL (0-79) H 05/08/21 03:10 Total Protein 7.7 g/dL (6.4-8.2) 05/08/21 03:10 Albumin 3.3 g/dL (3.4-5.0) L 05/08/21 03:10 Globulin 4.4 g/dL (2.5-4.5) 05/08/21 03:10 Albumin/Globulin Ratio 0.8 Ratio (1.1-2.1) L 05/08/21 03:10 Specimen Type Catherized urine 05/08/21 04:45 Urine Color Yellow (YELLOW) 05/08/21 04:45 Urine Appearance Clear (CLEAR) 05/08/21 04:45 Urine pH 7.0 (5.0 - 8.0) 05/08/21 04:45 Ur Specific [place] 1.010 (1.000-1.030) 05/08/21 04:45 Urine Protein 3+ (NEGATIVE) 05/08/21 04:45 Urine Glucose (UA) Negative (NEGATIVE) 05/08/21 04:45 Urine Ketones Negative (NEGATIVE) 05/08/21 04:45 Urine Occult Blood 4+ (NEGATIVE) 05/08/21 04:45 Urine Nitrite Negative (NEGATIVE) 05/08/21 04:45 Urine Bilirubin Negative (NEGATIVE) 05/08/21 04:45 Urine Urobilinogen Normal (NORMAL) 05/08/21 04:45 Ur Leukocyte Esterase Negative (NEGATIVE) 05/08/21 04:45 Urine RBC 0-2 /HPF (0-3) 05/08/21 04:45 Urine WBC None seen /HPF (0-5) 05/08/21 04:45 Ur Squamous Epith Cells Few /HPF (NEGATIVE) 05/08/21 04:45 Urine Bacteria Negative /HPF (NEGATIVE) 05/08/21 04:45 Ur Culture Indicated? No/not indicated 05/08/21 04:45 SARS-CoV-2 (PCR) Negative (NEGATIVE) 05/08/21 06:10 Influenza Type A (PCR) Negative (NEGATIVE) 05/08/21 06:10 Influenza Type B (PCR) Negative (NEGATIVE) 05/08/21 06:10 RSV (PCR) Negative (NEGATIVE) 05/08/21 06:10 Opioid Opioid Risk Tool Age ([place] box if 16-45): No History of Preadolescent Sexual Abuse: No Total: 0 Total Score Risk Category: Low Risk Copyright: [facility] predicting aberrant behaviors Diagnosis Discharge Problem: Hypokalemia, Generalized weakness AMS (altered mental status) Qualifiers: Altered mental status type: transient alteration of awareness Qualified Code(s): R40.4 - Transient alteration of awareness Hypertension Qualifiers: Hypertension type: primary hypertension Qualified Code(s): I10 - Essential (primary) hypertension Instructions Forms: Precautions for COVID19 [facility] Social Distancing
[2021-05-08 03:36] LABS: BASOPHILS % (AUTO) 0.3 % (0.2-1.0); EOSINOPHILS # (AUTO) 0.1 x10^3/uL (0.0-0.2); EOSINOPHILS % (AUTO) 0.6 % (0.9-2.9); HEMATOCRIT 42.3 % (36.0-47.0); HEMOGLOBIN 14.8 g/dL (12.0-16.0); LYMPHOCYTES # (AUTO) 0.7 X10^3/uL (1.3-2.9); LYMPHOCYTES % (AUTO) 6.5 % (21.0-51.0); MEAN CORPUSCULAR HEMOGLOBIN 31.6 pg (27.0-34.0); MEAN CORPUSCULAR HGB CONC 34.9 g/dL (33.0-35.0); MEAN CORPUSCULAR VOLUME 90.4 fL (80.0-100.0); MEAN PLATELET VOLUME 8.3 fL (7.4-11.0); MONOCYTES # (AUTO) 0.9 x10^3/uL (0.3-0.8); MONOCYTES % (AUTO) 8.1 % (0.0-13.0); NEUTROPHILS # (AUTO) 9.1 x10^3/uL (2.2-4.8); NEUTROPHILS % (AUTO) 84.5 % (42.0-75.0); PLATELET COUNT 264 X10^3/uL (150.0-450.0); RED BLOOD COUNT 4.68 X10^6/uL (3.5-5.4); RED CELL DISTRIBUTION WIDTH 13.9 % (11.6-16.5); WHITE BLOOD COUNT 10.8 X10^3/uL (3.6-10.0)
[2021-05-08 03:43] LABS: ALANINE AMINOTRANSFERASE 54 Units/L (12-78); ALBUMIN 3.3 g/dL (3.4-5.0); ALKALINE PHOSPHATASE 88 Units/L (46-116); ASPARTATE AMINO TRANSFERASE 57 Units/L (15-37); BLOOD UREA NITROGEN 9 mg/dL (7-18); CALCIUM 8.6 mg/dL (8.5-10.1); CHLORIDE 95 mmol/L (98-107); COR CA(FOR HYPOALB) 9.2 mg/dL (8.5-10.1); COR NA(FOR HYPERGLY) 142 mmol/L (136-145); CREATININE 0.81 mg/dL (0.55-1.02); SODIUM 141 mmol/L (136-145); TOTAL PROTEIN 7.7 g/dL (6.4-8.2); eGFR NON BLACK RACES > 60 (>60)
[2021-05-08] MEDS ORDERED: KLOR-CON PO ONE (03:50)
--- NOTE | 2021-05-08 04:09 | CT ---
History: AMS PMH: HTN, SEIZURES PSH: HYST, JOINT REPLACEMENT, ORTHOExam :BRAIN W/O CONTechnique: Thin section axial ct images of the brain were obtained from the foramen magnum to the vertex without contrast. Sagittal and coronal reconstructions were also performed.Comparison: 01/05/2021Findings:The ventricles are within normal limits in size. No midline shift, mass effect or extra-axial fluid collections. No evidence of acute hemorrhage or acute macroinfarction. Mild cortical atrophy compatible with patient's age. Decreased attenuation in the periventricular and subcortical white matter consistent with microvascular ischemic white matter changes.The visualized paranasal sinuses and mastoids are unremarkable. The calvarium is intact.Impression:Mild cortical atrophy with microvascular ischemic white matter changes.No acute intracranial pathology.Electronically signed by: Josue Collins (May 08, 2021 04:07:30)
--- NOTE | 2021-05-08 04:11 | RAD ---
HISTORYSOB PMH: HTN, SEIZURES PSH: HYST, JOINT REPLACEMENT, ORTHOSTUDYCHEST, 1 [id number]/2021FINDINGSThe trachea is midline. The cardiac silhouette is unremarkable. The lungs are clear without focal infiltrate or effusion. Pulmonary vasculature within normal limits. No pneumothorax. The bony thorax is unremarkable.IMPRESSIONNo acute cardiopulmonary disease.Electronically signed by: Josue Collins (May 08, 2021 04:08:32)
[2021-05-08] MEDS ORDERED: KLOR-CON ONE (04:16)
[2021-05-08] MEDS ORDERED: CATAPRES TAB 0.2 MG ONE (04:53)
[2021-05-08] MEDS ORDERED: CATAPRES TAB 0.2 MG PO ONE (04:53)
[2021-05-08 04:58] LABS: BILIRUBIN,URINE NEGATIVE (NEGATIVE); BLOOD/HEMOGLOBIN,URINE 4+ (NEGATIVE); GLUCOSE, URINE NEGATIVE (NEGATIVE); KETONES,URINE NEGATIVE (NEGATIVE); LEUKOCYTE ESTERASE ,URINE NEGATIVE (NEGATIVE); NITRITES,URINE NEGATIVE (NEGATIVE); PROTEIN,URINE 3+ (NEGATIVE); UROBILINOGEN,URINE NORMAL (NORMAL)
[2021-05-08 05:08] LABS: APPEARANCE,URINE CLEAR (CLEAR); COLOR,URINE YELLOW (YELLOW)
[2021-05-08 05:16] LABS: BACTERIA,URINE NEGATIVE /HPF (NEGATIVE); RBC,URINE 0-2 /HPF (0-3); SQUAMOUS EPITHELIAL CELL,UR FEW /HPF (NEGATIVE)
[2021-05-08] MEDS ORDERED: ZESTRIL TAB 10 MG PO ONE (05:46)
[2021-05-08] MEDS ORDERED: ZESTRIL TAB 10 MG ONE (05:49)
[2021-05-08] MEDS ORDERED: DICLOFENAC SODIUM 50 MG PO PRN (08:43)
[2021-05-08] MEDS: LASIX PO SCH (09:20)
[2021-05-08] MEDS: ZESTRIL TAB 10 MG PO SCH (09:21)
[2021-05-08] MEDS: SYNTHROID 50 mcg TAB PO SCH (09:21)
[2021-05-08] MEDS: PROTONIX INJ 40 MG VIAL IVP SCH (09:21)
[2021-05-08] MEDS ORDERED: POTASSIUM CHL 60 MEQ/NS 0.45% 500 ML 60 MEQ/500 ML BAG IV NR (10:00)
[2021-05-08 10:11] LABS: CKMB % 0.9 % (<4); CREATINE KINASE 476 Units/L (26-192); TROPONIN I < 0.02 ng/mL (0-1.5)
[2021-05-08 10:24] LABS: CREATINE KINASE MB 4.4 ng/mL (0-4.0)
[2021-05-08] MEDS: NS 1000 ML 1,000 ML IV SCH ×2 (10:27→21:50)
[2021-05-08] MEDS: MYSOLINE TAB 250 MG PO SCH ×2 (15:14→21:04)
[2021-05-08 15:30] LABS: CKMB % 0.6 % (<4); CREATINE KINASE 395 Units/L (26-192); CREATINE KINASE MB 2.5 ng/mL (0-4.0); TROPONIN I < 0.02 ng/mL (0-1.5)
--- NOTE | 2021-05-08 15:46 | VAS ---
HISTORYDIZZINESS, AMSSTUDYCAROTID USCOMPARISONNone availableTECHNIQUEMultiple claire scale and color flow Doppler images of the right and left carotid and vertebral arterial system were obtained. Spectral analysis was performed.FINDINGSThere is no significant calcified plaque in the carotid bulbs. The velocity of the right common carotid artery in the mid aspect is 66.2 and in the left 64.2 centimeter/sec The right ICA proximally velocity is 67.6 and the left 51.5 centimeters/sec and distally in the right 90.5 and in the left 62.3 cm/sec. The right ICA CCA ratio is 1.4 and the left 1.1. There is bilateral antegrade vertebral flow. No significant increased velocity of the external carotid arteries.IMPRESSIONNo sonographic evidence of hemodynamically significant bilateral internal carotid arteries stenosis.Electronically signed by: Danni Clement (May 08, 2021 15:44:21)
--- NOTE | 2021-05-08 18:23 | MRI ---
MR brain without contrastIndication: Possible stroke. Multiple fallsCOMPARISONMRA from the same day and CT head from earlier the same day as well.TECHNIQUEMultiplanar multisequence imaging through the brain without contrastFINDINGSDiffusion-weighted imaging shows no abnormal focus of restricted diffusion to suggest acute infarction. Corresponding ADC map is normal. T1 weighted bone marrow signal is normal. Soft tissues of the face show no unexpected abnormality. Midline structures are intact. There is no acute intracranial hemorrhage, mass or mass effect. Upper cervical spine is grossly intact on limited images. Intracranial vascular flow voids are normal. Orbits are normal. Paranasal sinuses and mastoid air cells are clear. There is mild cerebral atrophy with ex vacuo ventricular and sulcal enlargement. Mild periventricular white matter changes of microangiopathy are noted on FLAIR, with few scattered T2 cerebral white matter hyperintensities noted.No gradient signal abnormality is identified. Motion artifact limits several sequences, particularly the coronal T2 series.IMPRESSION1. Motion limited study2. No acute intracranial hemorrhage or infarct identified3. Mild atrophy and microangiopathy.Electronically signed by: BESS LARA (May 08, 2021 18:21:50)
--- NOTE | 2021-05-08 18:25 | MRI ---
MRA brain without contrastIndication: Evaluate strokeCOMPARISONMR brain from the same day and CT head from earlier same dayTECHNIQUEMultiplanar multisequence imaging through the brain without contrast. 3D [id number] reformatted images provided.FINDINGSThe visualized V4 segments of the vertebral arteries are patent. The basilar artery appears normal in caliber. Posterior cerebral arteries appear normal.Anterior cerebral arteries appear normal. Middle cerebral arteries appear normal with normal arborization. The internal carotid arteries appear normal.IMPRESSIONNo evidence of large aneurysm, dissection or occlusion convincingly demonstrated on MRA images. No severe stenosis seen.Electronically signed by: BESS LARA (May 08, 2021 18:23:23)
[2021-05-08] MEDS: LIPITOR TAB 20 MG PO SCH (21:01)
[2021-05-08 21:15] LABS: CKMB % 0.6 % (<4); CREATINE KINASE 315 Units/L (26-192); CREATINE KINASE MB 1.9 ng/mL (0-4.0); TROPONIN I < 0.02 ng/mL (0-1.5)
[2021-05-08] MEDS: FLEXERIL TAB 10 MG PO PRN (21:19)
[2021-05-09 00:35] LABS: MAGNESIUM 1.7 mg/dL (1.7-2.9)
[2021-05-09] MEDS ORDERED: KLOR-CON PO PRN (00:53)
[2021-05-09] MEDS: MAGNESIUM SULFATE 1 GRAM/100 mL PREMIX 1 G/100 ML BAG IV PRN ×3 (01:41→08:10)
[2021-05-09] MEDS: K-RIDER 10 MEQ/NS 100 ML 10 MEQ/100 ML BAG IV PRN ×7 (04:12→15:29)
[2021-05-09 06:05] LABS: BASOPHILS % (AUTO) 0.6 % (0.2-1.0); EOSINOPHILS # (AUTO) 0.2 x10^3/uL (0.0-0.2); EOSINOPHILS % (AUTO) 3.4 % (0.9-2.9); HEMATOCRIT 37.3 % (36.0-47.0); LYMPHOCYTES # (AUTO) 1.6 X10^3/uL (1.3-2.9); LYMPHOCYTES % (AUTO) 21.8 % (21.0-51.0); MEAN CORPUSCULAR HEMOGLOBIN 31.5 pg (27.0-34.0); MEAN CORPUSCULAR HGB CONC 34.8 g/dL (33.0-35.0); MEAN CORPUSCULAR VOLUME 90.6 fL (80.0-100.0); MEAN PLATELET VOLUME 8.3 fL (7.4-11.0); MONOCYTES % (AUTO) 13.8 % (0.0-13.0); NEUTROPHILS # (AUTO) 4.4 x10^3/uL (2.2-4.8); NEUTROPHILS % (AUTO) 60.4 % (42.0-75.0); PLATELET COUNT 206 X10^3/uL (150.0-450.0); RED BLOOD COUNT 4.11 X10^6/uL (3.5-5.4); RED CELL DISTRIBUTION WIDTH 13.7 % (11.6-16.5); WHITE BLOOD COUNT 7.3 X10^3/uL (3.6-10.0)
[2021-05-09 06:14] LABS: ALANINE AMINOTRANSFERASE 56 Units/L (12-78); ALBUMIN 2.9 g/dL (3.4-5.0); ALKALINE PHOSPHATASE 69 Units/L (46-116); ASPARTATE AMINO TRANSFERASE 62 Units/L (15-37); BLOOD UREA NITROGEN 6 mg/dL (7-18); CALCIUM 8.3 mg/dL (8.5-10.1); CHLORIDE 96 mmol/L (98-107); COR CA(FOR HYPOALB) 9.2 mg/dL (8.5-10.1); COR NA(FOR HYPERGLY) 141 mmol/L (136-145); CREATININE 0.65 mg/dL (0.55-1.02); MAGNESIUM 2.3 mg/dL (1.7-2.9); SODIUM 141 mmol/L (136-145); TOTAL PROTEIN 6.8 g/dL (6.4-8.2); eGFR NON BLACK RACES > 60 (>60)
[2021-05-09] MEDS: MYSOLINE TAB 250 MG PO SCH ×3 (06:23→21:01)
[2021-05-09] MEDS: SYNTHROID 50 mcg TAB PO SCH (09:00)
[2021-05-09] MEDS: PROTONIX INJ 40 MG VIAL IVP SCH (09:00)
[2021-05-09] MEDS: ZESTRIL TAB 10 MG PO SCH (09:00)
[2021-05-09] MEDS: LASIX PO SCH (09:00)
[2021-05-09] MEDS: NS 1000 ML 1,000 ML IV SCH ×3 (11:46→23:00)
--- NOTE | 2021-05-09 20:29 | DR.H&P ---
H&P - History & Physical for Day of: H&P Date: 05/08/21 - Chief Complaint Chief Complaint: WEAKNESS - History of Present Illness History of Present Illness: PATIENT IS A 75 YEAR OLD WHITE MALE WHO WAS ADMITTED DUE TO AMS, HYPOKALEMIA, TIA VS CVA. PCP IS DR OSORIO. PATIENT IS ALERT AND ORIENTED AT TIME OF EXAM. PATIENT STATES SHE IS WEAK AND SPOUSE IS UNABLE TO HELP MUCH AT HOME WHEN SHE IS WEAK. PATIENT ALSO REPORTS DIARRHEA FOR SEVERAL DAYS WHICH IS WHY SHE BELIEVES HER POTASSIUM IS LOW. STATES SHE HAS APPROXIMATELY 7 WATERY YELLOW STOOLS PER DAY. STATES SHE HAS FOLLOWED UP WITH A GASTRO IN THE PAST AND HAS BEEN SCOPED DUE TO DIARRHEA. DENIES FEVER OR CHILLS. REPORTS SHE HAS DIFFICULTY EXPRESSING WHAT SHE IS TRYING TO PUT INTO WORDS/SAY FREQUENTLY. DENIES OLIVA, DIZZINESS, CP, SOB OR ANY OTHER ISSUES. POTASSIUM 2.2; REPLACEMENT ORDERED - Past Medical History Past Medical History: Hypertension, Depression, Anxiety, Seizures, GERD, Arthritis, Gout Additional Medical History: Ear Infections, Epilepsy, Bronchitis, Pneumonia, Diarrhea, Urinary Tract Infections, Back Pain, Skin Cancer, CHRONIC DIARRHEA - Past Surgical History Surgical History: Hysterectomy, Joint Replacement, Ortho Surgery, Other Additional Surgical History: Lapband, Right TKA, Removal of Skin Cancer - Family History Family Medical History: Diabetes Mellitus, Cancer, [place], Coronary Artery Disease, Hypertension - Social History Does patient currently use any type of tobacco product: No Have you used tobacco products in the last 12 months: No Type of Tobacco Use: None Does any household member use tobacco: No Alcohol Use: None Drug Use: None - Medications Home Medications: cephalexin Allergy (Verified 10/15/20 19:10) oxytetracycline Allergy (Verified 10/15/20 19:10) polymyxin B [From Terramycin with Polymyxin B] Allergy (Verified 10/15/20 19:10) CONTINUE taking the following medications propranolol 80 mg PO QID 05/08/21 [History] - Review of Systems Constitutional: See HPI Eyes: See HPI ENT: See HPI Respiratory: See HPI Cardiovascular: See HPI Gastrointestinal: See HPI Genitourinary: See HPI Musculoskeletal: See HPI Skin: See HPI Neurological: See HPI, Weakness - Physical Exam Vital Signs: Temperature 98.8 F Pulse Rate [Left Radial] 62 Pulse Rate 68 Respiratory Rate 18 Blood Pressure [Left Arm] 163/64 Blood Pressure 161/70 O2 Sat by Pulse Oximetry 95 Oriented: Normal Eyes: Normal Ear: Normal Nose: Normal Throat: Normal Respiratory: Clear Throughout Cardiovascular: Normal : Normal Auscultation: Bowel Sounds: Increased Palpation: Normal Tenderness: Normal Skin: Normal Musculoskeletal: Instability Psychiatric: Normal Mood Description: Calm Affect: Normal Speech Pattern: Clear - Assessment/Plan (1) Hypokalemia Status: Acute Plan: REPLACE. REPEAT LEVEL (2) AMS (altered mental status) Qualifiers: Altered mental status type: transient alteration of awareness Qualified Code(s): R40.4 - Transient alteration of awareness Status: Acute Plan: MRI BRAIN, MRA HEAD, US CAROTID, ECHO (3) Chronic diarrhea Status: Acute Plan: STOOL STUDIES. IV FLUIDS. IMMODIUM PRN (4) Generalized weakness Status: Acute Plan: PT REPLACE POTASSIUM - Review H&P Reviewed: Yes Patient was examined?: Yes - Allergies Allergies/Adverse Reactions: Allergies Allergy/AdvReac Type Severity Reaction Status Date / Time cephalexin Allergy Verified 10/15/20 19:10 oxytetracycline Allergy Verified 10/15/20 19:10 polymyxin B Allergy Verified 10/15/20 19:10 [From Terramycin with Polymyxin B]
[2021-05-09] MEDS: LIPITOR TAB 20 MG PO SCH (20:34)
[2021-05-09] MEDS: FLEXERIL TAB 10 MG PO PRN (20:35)
[2021-05-09] MEDS: PriLOSEC PO SCH (20:35)
--- NOTE | 2021-05-09 20:36 | PCM.PROG ---
Progress Note - Subjective Subjective: PATIENT IS A 75 YEAR OLD WF WHO WAS ADMITTED PER H&P. PATIENT REPORTS IMMODIUM IMPROVED DIARRHEA. PATIENT DENIES ANY NEW CONCERNS. MRI AND MRA WERE NEGATIVE FOR ACUTE ABNORMALITY, ECHO NORMAL, US CAROTIDS NORMAL, CVA RULED OUT. POTASSIUM CONTINUES TO BE LOW; WILL REPLACE. - Past Medical Family Social History Past Med/Fam/Surg Hx: No changes since H&P Allergies: Allergies cephalexin Allergy (Verified 10/15/20 19:10) oxytetracycline Allergy (Verified 10/15/20 19:10) polymyxin B [From Terramycin with Polymyxin B] Allergy (Verified 10/15/20 19:10) - Review of Systems ROS: No change since H&P - Vital Signs and I&O's Vital Signs: Temperature 98.8 F Pulse Rate [Left Radial] 62 Pulse Rate 68 Respiratory Rate 18 Blood Pressure [Left Arm] 163/64 Blood Pressure 161/70 O2 Sat by Pulse Oximetry 95 Intake and Output: Intake & Output 05/06/21 05/07/21 05/08/21 05/09/21 23:59 23:59 23:59 23:59 Intake Total 1709 Balance 1709 - Physical Exam Oriented: Normal Eyes: Normal Ear: Normal Nose: Normal Throat: Normal Cardiovascular: Normal : Normal Auscultation: Bowel Sounds: Increased Tenderness: Normal Skin: Normal Musculoskeletal: Instability Psychiatric: Normal Mood Description: Calm Affect: Normal Speech Pattern: Clear - Laboratory and Diagnostics Result Diagrams: 05/09/21 05:17 05/09/21 19:53 Labs: Laboratory WBC 7.3 X10^3/uL (3.6-10.0) 05/09/21 05:17 RBC 4.11 X10^6/uL (3.5-5.4) 05/09/21 05:17 Hgb 13.0 g/dL (12.0-16.0) 05/09/21 05:17 Hct 37.3 % (36.0-47.0) 05/09/21 05:17 MCV 90.6 fL (80.0-100.0) 05/09/21 05:17 MCH 31.5 pg (27.0-34.0) 05/09/21 05:17 MCHC 34.8 g/dL (33.0-35.0) 05/09/21 05:17 RDW 13.7 % (11.6-16.5) 05/09/21 05:17 Plt Count 206 X10^3/uL (150.0-450.0) 05/09/21 05:17 MPV 8.3 fL (7.4-11.0) 05/09/21 05:17 Neut % (Auto) 60.4 % (42.0-75.0) 05/09/21 05:17 Lymph % (Auto) 21.8 % (21.0-51.0) 05/09/21 05:17 [place] % (Auto) 13.8 % (0.0-13.0) H 05/09/21 05:17 Eos % (Auto) 3.4 % (0.9-2.9) H 05/09/21 05:17 Baso % (Auto) 0.6 % (0.2-1.0) 05/09/21 05:17 Neut # (Auto) 4.4 x10^3/uL (2.2-4.8) 05/09/21 05:17 Lymph # (Auto) 1.6 X10^3/uL (1.3-2.9) 05/09/21 05:17 [place] # (Auto) 1.0 x10^3/uL (0.3-0.8) H 05/09/21 05:17 Eos # (Auto) 0.2 x10^3/uL (0.0-0.2) 05/09/21 05:17 Baso # (Auto) 0.0 X10^3/uL (0.0-0.1) 05/09/21 05:17 Absolute Nucleated RBC 0.0 /100WBC 05/09/21 05:17 PT 14.1 SECONDS (11.8-14.3) 05/09/21 05:17 INR Target Range - 05/09/21 05:17 INR 1.15 (0.8-1.3) 05/09/21 05:17 APTT 34.2 SECONDS (22.9-36.5) 05/09/21 05:17 PTT Comment - 05/09/21 05:17 Sodium 141 mmol/L (136-145) 05/09/21 05:17 Corrected Sodium 141 mmol/L (136-145) 05/09/21 05:17 Potassium 2.6 mmol/L (3.5-5.1) L* 05/09/21 19:53 Chloride 96 mmol/L (98-107) L 05/09/21 05:17 Carbon Dioxide 42.0 mmol/L (21-32) H* 05/09/21 05:17 BUN 6 mg/dL (7-18) L 05/09/21 05:17 Creatinine 0.65 mg/dL (0.55-1.02) 05/09/21 05:17 Est GFR (MDRD) Af Amer > 60 (>60) 05/09/21 05:17 Est GFR (MDRD) Non-Af > 60 (>60) 05/09/21 05:17 Glucose 118 mg/dL (65-99) H 05/09/21 05:17 Calcium 8.3 mg/dL (8.5-10.1) L 05/09/21 05:17 Corrected Calcium 9.2 mg/dL (8.5-10.1) 05/09/21 05:17 Magnesium 2.3 mg/dL (1.7-2.9) 05/09/21 05:17 Total Bilirubin 0.30 mg/dL (0.2-1.0) 05/09/21 05:17 AST 62 Units/L (15-37) H 05/09/21 05:17 ALT 56 Units/L (12-78) 05/09/21 05:17 Alkaline Phosphatase 69 Units/L (46-116) 05/09/21 05:17 Creatine Kinase 315 Units/L (26-192) H 05/08/21 20:45 CK-MB (CK-2) 1.9 ng/mL (0-4.0) 05/08/21 20:45 CK/CKMB % Calc 0.6 % (<4) 05/08/21 20:45 Troponin I < 0.02 ng/mL (0-1.5) 05/08/21 20:45 B-Natriuretic Peptide 210 pg/mL (0-79) H 05/08/21 03:10 Total Protein 6.8 g/dL (6.4-8.2) 05/09/21 05:17 Albumin 2.9 g/dL (3.4-5.0) L 05/09/21 05:17 Globulin 3.9 g/dL (2.5-4.5) 05/09/21 05:17 Albumin/Globulin Ratio 0.7 Ratio (1.1-2.1) L 05/09/21 05:17 Specimen Type Catherized urine 05/08/21 04:45 Urine Color Yellow (YELLOW) 05/08/21 04:45 Urine Appearance Clear (CLEAR) 05/08/21 04:45 Urine pH 7.0 (5.0 - 8.0) 05/08/21 04:45 Ur Specific [place] 1.010 (1.000-1.030) 05/08/21 04:45 Urine Protein 3+ (NEGATIVE) 05/08/21 04:45 Urine Glucose (UA) Negative (NEGATIVE) 05/08/21 04:45 Urine Ketones Negative (NEGATIVE) 05/08/21 04:45 Urine Occult Blood 4+ (NEGATIVE) 05/08/21 04:45 Urine Nitrite Negative (NEGATIVE) 05/08/21 04:45 Urine Bilirubin Negative (NEGATIVE) 05/08/21 04:45 Urine Urobilinogen Normal (NORMAL) 05/08/21 04:45 Ur Leukocyte Esterase Negative (NEGATIVE) 05/08/21 04:45 Urine RBC 0-2 /HPF (0-3) 05/08/21 04:45 Urine WBC None seen /HPF (0-5) 05/08/21 04:45 Ur Squamous Epith Cells Few /HPF (NEGATIVE) 05/08/21 04:45 Urine Bacteria Negative /HPF (NEGATIVE) 05/08/21 04:45 Ur Culture Indicated? No/not indicated 05/08/21 04:45 SARS-CoV-2 (PCR) Negative (NEGATIVE) 05/08/21 06:10 Influenza Type A (PCR) Negative (NEGATIVE) 05/08/21 06:10 Influenza Type B (PCR) Negative (NEGATIVE) 05/08/21 06:10 RSV (PCR) Negative (NEGATIVE) 05/08/21 06:10 - Plan (1) Hypokalemia Status: Acute Plan: REPLACE. REPEAT LABS IN AM (2) AMS (altered mental status) Status: Acute Qualifiers: Altered mental status type: transient alteration of awareness Qualified Code(s): R40.4 - Transient alteration of awareness Plan: AMS RESOLVED (3) Chronic diarrhea Status: Acute Plan: STOOL STUDIES PENDING. IV FLUIDS. IMMODIUM PRN (4) Generalized weakness Status: Acute Plan: PT REPLACE POTASSIUM
[2021-05-09] MEDS: K-DUR TAB 20 MEQ PO PRN (23:11)
[2021-05-10 05:16] LABS: BASOPHILS # (AUTO) 0.1 X10^3/uL (0.0-0.1); BASOPHILS % (AUTO) 1.1 % (0.2-1.0); EOSINOPHILS # (AUTO) 0.4 x10^3/uL (0.0-0.2); EOSINOPHILS % (AUTO) 6.5 % (0.9-2.9); HEMATOCRIT 36.6 % (36.0-47.0); LYMPHOCYTES # (AUTO) 1.9 X10^3/uL (1.3-2.9); LYMPHOCYTES % (AUTO) 27.5 % (21.0-51.0); MEAN CORPUSCULAR HEMOGLOBIN 31.9 pg (27.0-34.0); MEAN CORPUSCULAR HGB CONC 35.5 g/dL (33.0-35.0); MEAN PLATELET VOLUME 8.1 fL (7.4-11.0); MONOCYTES # (AUTO) 0.9 x10^3/uL (0.3-0.8); MONOCYTES % (AUTO) 12.7 % (0.0-13.0); NEUTROPHILS # (AUTO) 3.5 x10^3/uL (2.2-4.8); NEUTROPHILS % (AUTO) 52.2 % (42.0-75.0); PLATELET COUNT 217 X10^3/uL (150.0-450.0); RED BLOOD COUNT 4.07 X10^6/uL (3.5-5.4); RED CELL DISTRIBUTION WIDTH 13.9 % (11.6-16.5); WHITE BLOOD COUNT 6.8 X10^3/uL (3.6-10.0)
[2021-05-10 05:30] LABS: ALANINE AMINOTRANSFERASE 120 Units/L (12-78); ALBUMIN 2.7 g/dL (3.4-5.0); ALKALINE PHOSPHATASE 73 Units/L (46-116); ASPARTATE AMINO TRANSFERASE 124 Units/L (15-37); BLOOD UREA NITROGEN 6 mg/dL (7-18); CALCIUM 8.2 mg/dL (8.5-10.1); CHLORIDE 97 mmol/L (98-107); COR CA(FOR HYPOALB) 9.2 mg/dL (8.5-10.1); CREATININE 0.59 mg/dL (0.55-1.02); SODIUM 140 mmol/L (136-145); TOTAL PROTEIN 6.6 g/dL (6.4-8.2); eGFR NON BLACK RACES > 60 (>60)
[2021-05-10 05:40] LABS: CARBON DIOXIDE 40.8 mmol/L (21-32)
[2021-05-10] MEDS: MYSOLINE TAB 250 MG PO SCH ×3 (05:44→21:08)
[2021-05-10] MEDS: NS 1000 ML 1,000 ML IV SCH ×3 (05:45→21:29)
[2021-05-10 05:46] LABS: BILIRUBIN,URINE NEGATIVE (NEGATIVE); BLOOD/HEMOGLOBIN,URINE 2+ (NEGATIVE); GLUCOSE, URINE NEGATIVE (NEGATIVE); KETONES,URINE NEGATIVE (NEGATIVE); LEUKOCYTE ESTERASE ,URINE NEGATIVE (NEGATIVE); NITRITES,URINE POSITIVE (NEGATIVE); PROTEIN,URINE 1+ (NEGATIVE); UROBILINOGEN,URINE NORMAL (NORMAL)
[2021-05-10] MEDS: K-DUR TAB 20 MEQ PO PRN ×2 (05:58→10:33)
[2021-05-10 06:10] LABS: APPEARANCE,URINE CLEAR (CLEAR); BACTERIA,URINE 2+ /HPF (NEGATIVE); COLOR,URINE STRAW (YELLOW); RBC,URINE 0-2 /HPF (0-3); SQUAMOUS EPITHELIAL CELL,UR FEW /HPF (NEGATIVE)
[2021-05-10] MEDS: LASIX PO SCH (10:27)
[2021-05-10] MEDS: ZESTRIL TAB 10 MG PO SCH (10:27)
[2021-05-10] MEDS: SYNTHROID 50 mcg TAB PO SCH (10:28)
[2021-05-10] MEDS: PriLOSEC PO SCH ×2 (10:28→21:08)
[2021-05-10] MEDS: FLEXERIL TAB 10 MG PO PRN (10:38)
[2021-05-10] MEDS: IMODIUM CAP 2 MG PO PRN (11:23)
[2021-05-10] MEDS: LOVENOX INJ 40 MG SYR SC SCH (15:00)
[2021-05-10] MEDS: LEVAQUIN PREMIX IV 500 MG 500 MG/100 ML BAG IV SCH (15:22)
[2021-05-10] MEDS: K-DUR TAB 20 MEQ PO SCH (15:25)
[2021-05-10] MEDS: LIPITOR TAB 20 MG PO SCH (20:54)
[2021-05-10] MEDS ORDERED: K-DUR TAB 20 MEQ PO SCH (21:00)
[2021-05-10] MEDS ORDERED: POTASSIUM CHLORIDE LIQ 20 MEQ UDC PO PRN (21:45)
[2021-05-11] MEDS: NS 1000 ML 1,000 ML IV SCH ×2 (01:34→13:55)
[2021-05-11 05:20] LABS: BASOPHILS % (AUTO) 0.5 % (0.2-1.0); EOSINOPHILS # (AUTO) 0.4 x10^3/uL (0.0-0.2); EOSINOPHILS % (AUTO) 4.4 % (0.9-2.9); HEMATOCRIT 35.9 % (36.0-47.0); HEMOGLOBIN 12.6 g/dL (12.0-16.0); MEAN CORPUSCULAR HEMOGLOBIN 31.5 pg (27.0-34.0); MEAN CORPUSCULAR HGB CONC 35.2 g/dL (33.0-35.0); MEAN CORPUSCULAR VOLUME 89.5 fL (80.0-100.0); MEAN PLATELET VOLUME 8.7 fL (7.4-11.0); MONOCYTES % (AUTO) 11.9 % (0.0-13.0); NEUTROPHILS # (AUTO) 4.7 x10^3/uL (2.2-4.8); NEUTROPHILS % (AUTO) 58.2 % (42.0-75.0); PLATELET COUNT 244 X10^3/uL (150.0-450.0); RED BLOOD COUNT 4.01 X10^6/uL (3.5-5.4); RED CELL DISTRIBUTION WIDTH 13.4 % (11.6-16.5); WHITE BLOOD COUNT 8.1 X10^3/uL (3.6-10.0)
[2021-05-11 05:32] LABS: ALANINE AMINOTRANSFERASE 123 Units/L (12-78); ALBUMIN 2.7 g/dL (3.4-5.0); ALKALINE PHOSPHATASE 78 Units/L (46-116); ASPARTATE AMINO TRANSFERASE 115 Units/L (15-37); BLOOD UREA NITROGEN 5 mg/dL (7-18); CARBON DIOXIDE 37.1 mmol/L (21-32); CHLORIDE 96 mmol/L (98-107); CREATININE 0.62 mg/dL (0.55-1.02); SODIUM 136 mmol/L (136-145); TOTAL PROTEIN 6.5 g/dL (6.4-8.2); eGFR NON BLACK RACES > 60 (>60)
[2021-05-11] MEDS: MYSOLINE TAB 250 MG PO SCH ×4 (06:21→21:00)
[2021-05-11] MEDS: LEVAQUIN PREMIX IV 500 MG 500 MG/100 ML BAG IV SCH (08:49)
[2021-05-11] MEDS: K-DUR TAB 20 MEQ PO SCH (08:49)
[2021-05-11] MEDS: PriLOSEC PO SCH ×2 (08:50→21:00)
[2021-05-11] MEDS: LOVENOX INJ 40 MG SYR SC SCH (08:51)
[2021-05-11] MEDS: SYNTHROID 50 mcg TAB PO SCH (08:51)
[2021-05-11] MEDS: ZESTRIL TAB 10 MG PO SCH (08:51)
[2021-05-11] MEDS: LIPITOR TAB 20 MG PO SCH (21:00)
[2021-05-11] MEDS: IMODIUM CAP 2 MG PO PRN (22:08)
[2021-05-12] MEDS: NS 1000 ML 1,000 ML IV SCH (05:22)
[2021-05-12 05:25] LABS: BASOPHILS % (AUTO) 0.6 % (0.2-1.0); EOSINOPHILS # (AUTO) 0.3 x10^3/uL (0.0-0.2); EOSINOPHILS % (AUTO) 4.2 % (0.9-2.9); HEMATOCRIT 37.4 % (36.0-47.0); HEMOGLOBIN 13.1 g/dL (12.0-16.0); LYMPHOCYTES # (AUTO) 2.4 X10^3/uL (1.3-2.9); MEAN CORPUSCULAR HEMOGLOBIN 31.7 pg (27.0-34.0); MEAN CORPUSCULAR HGB CONC 34.9 g/dL (33.0-35.0); MEAN PLATELET VOLUME 8.8 fL (7.4-11.0); MONOCYTES # (AUTO) 0.9 x10^3/uL (0.3-0.8); MONOCYTES % (AUTO) 11.4 % (0.0-13.0); NEUTROPHILS % (AUTO) 51.8 % (42.0-75.0); PLATELET COUNT 239 X10^3/uL (150.0-450.0); RED BLOOD COUNT 4.11 X10^6/uL (3.5-5.4); RED CELL DISTRIBUTION WIDTH 13.4 % (11.6-16.5); WHITE BLOOD COUNT 7.7 X10^3/uL (3.6-10.0)
[2021-05-12 05:34] LABS: ALANINE AMINOTRANSFERASE 115 Units/L (12-78); ALBUMIN 2.6 g/dL (3.4-5.0); ALKALINE PHOSPHATASE 79 Units/L (46-116); ASPARTATE AMINO TRANSFERASE 87 Units/L (15-37); BLOOD UREA NITROGEN 6 mg/dL (7-18); CALCIUM 8.6 mg/dL (8.5-10.1); CARBON DIOXIDE 33.2 mmol/L (21-32); CHLORIDE 100 mmol/L (98-107); COR CA(FOR HYPOALB) 9.7 mg/dL (8.5-10.1); CREATININE 0.63 mg/dL (0.55-1.02); SODIUM 140 mmol/L (136-145); TOTAL PROTEIN 6.5 g/dL (6.4-8.2); eGFR NON BLACK RACES > 60 (>60)
[2021-05-12] MEDS: MYSOLINE TAB 250 MG PO SCH (05:53)
[2021-05-12] MEDS ORDERED: TYLENOL 325 MG TAB PO PRN (05:54)
[2021-05-12] MEDS: LOVENOX INJ 40 MG SYR SC SCH (08:44)
[2021-05-12] MEDS: K-DUR TAB 20 MEQ PO SCH (08:44)
[2021-05-12] MEDS: ZESTRIL TAB 10 MG PO SCH (08:46)
[2021-05-12] MEDS: SYNTHROID 50 mcg TAB PO SCH (08:46)
[2021-05-12] MEDS: PriLOSEC PO SCH (08:46)
[2021-05-12] MEDS: LEVAQUIN PREMIX IV 500 MG 500 MG/100 ML BAG IV SCH (08:46)
--- NOTE | 2021-05-12 09:42 | PCM.PROG ---
Progress Note - Progress Note for Day of Date of Exam: 05/10/21 - Subjective Subjective: PATIENT IS A 75 YEAR OLD WF WHO WAS ADMITTED PER H&P. PATIENT REPORTS IMMODIUM IMPROVED DIARRHEA. PATIENT DENIES ANY NEW CONCERNS. MRI AND MRA WERE NEGATIVE FOR ACUTE ABNORMALITY, ECHO NORMAL, US CAROTIDS NORMAL, CVA RULED OUT. POTASSIUM HAS IMPROVED. D/C LASIX, PO POTASSIUM SUPPLEMENT DAILY. - Past Medical Family Social History Past Med/Fam/Surg Hx: No changes since H&P Allergies: Allergies cephalexin Allergy (Verified 10/15/20 19:10) oxytetracycline Allergy (Verified 10/15/20 19:10) polymyxin B [From Terramycin with Polymyxin B] Allergy (Verified 10/15/20 19:10) - Review of Systems ROS: No change since H&P - Vital Signs and I&O's Vital Signs: Temperature 99.2 F Pulse Rate [Left Radial] 63 Pulse Rate 68 Respiratory Rate 18 Blood Pressure [Right Arm] 152/67 Blood Pressure [Left Arm] 163/72 Blood Pressure 161/70 O2 Sat by Pulse Oximetry 93 Intake and Output: Intake & Output 05/09/21 05/10/21 05/11/21 05/12/21 23:59 23:59 23:59 23:59 Intake Total 2442 / 2442 2141 / 2141 940 / 940 666 / 666 Output Total 2500 / 2500 3600 / 3600 3300 / 3300 Balance 2442 / 2442 -359 / -359 -2660 / -2660 -2634 / -2634 - Physical Exam Oriented: Normal Eyes: Normal Ear: Normal Nose: Normal Throat: Normal Cardiovascular: Normal : Normal Auscultation: Bowel Sounds: Increased Tenderness: Normal Skin: Normal Musculoskeletal: Instability Psychiatric: Normal Mood Description: Calm Affect: Normal Speech Pattern: Clear, Appropriate - Laboratory and Diagnostics Result Diagrams: 05/12/21 04:35 05/12/21 04:35 Labs: 05/10/21 05:15 Urine,Catheterized Urine Culture - Final Proteus Penneri 05/11/21 21:01 Stool - Final Laboratory WBC 7.7 X10^3/uL (3.6-10.0) 05/12/21 04:35 RBC 4.11 X10^6/uL (3.5-5.4) 05/12/21 04:35 Hgb 13.1 g/dL (12.0-16.0) 05/12/21 04:35 Hct 37.4 % (36.0-47.0) 05/12/21 04:35 MCV 91.0 fL (80.0-100.0) 05/12/21 04:35 MCH 31.7 pg (27.0-34.0) 05/12/21 04:35 MCHC 34.9 g/dL (33.0-35.0) 05/12/21 04:35 RDW 13.4 % (11.6-16.5) 05/12/21 04:35 Plt Count 239 X10^3/uL (150.0-450.0) 05/12/21 04:35 MPV 8.8 fL (7.4-11.0) 05/12/21 04:35 Neut % (Auto) 51.8 % (42.0-75.0) 05/12/21 04:35 Lymph % (Auto) 32.0 % (21.0-51.0) 05/12/21 04:35 [place] % (Auto) 11.4 % (0.0-13.0) 05/12/21 04:35 Eos % (Auto) 4.2 % (0.9-2.9) H 05/12/21 04:35 Baso % (Auto) 0.6 % (0.2-1.0) 05/12/21 04:35 Neut # (Auto) 4.0 x10^3/uL (2.2-4.8) 05/12/21 04:35 Lymph # (Auto) 2.4 X10^3/uL (1.3-2.9) 05/12/21 04:35 [place] # (Auto) 0.9 x10^3/uL (0.3-0.8) H 05/12/21 04:35 Eos # (Auto) 0.3 x10^3/uL (0.0-0.2) H 05/12/21 04:35 Baso # (Auto) 0.0 X10^3/uL (0.0-0.1) 05/12/21 04:35 Absolute Nucleated RBC 0.0 /100WBC 05/12/21 04:35 PT 14.1 SECONDS (11.8-14.3) 05/09/21 05:17 INR Target Range - 05/09/21 05:17 INR 1.15 (0.8-1.3) 05/09/21 05:17 APTT 34.2 SECONDS (22.9-36.5) 05/09/21 05:17 PTT Comment - 05/09/21 05:17 Sodium 140 mmol/L (136-145) 05/12/21 04:35 Corrected Sodium TNP 05/12/21 04:35 Potassium 3.5 mmol/L (3.5-5.1) 05/12/21 04:35 Chloride 100 mmol/L (98-107) 05/12/21 04:35 Carbon Dioxide 33.2 mmol/L (21-32) H 05/12/21 04:35 BUN 6 mg/dL (7-18) L 05/12/21 04:35 Creatinine 0.63 mg/dL (0.55-1.02) 05/12/21 04:35 Est GFR (MDRD) Af Amer > 60 (>60) 05/12/21 04:35 Est GFR (MDRD) Non-Af > 60 (>60) 05/12/21 04:35 Glucose 104 mg/dL (65-99) H 05/12/21 04:35 Calcium 8.6 mg/dL (8.5-10.1) 05/12/21 04:35 Corrected Calcium 9.7 mg/dL (8.5-10.1) 05/12/21 04:35 Magnesium 2.3 mg/dL (1.7-2.9) 05/09/21 05:17 Total Bilirubin 0.30 mg/dL (0.2-1.0) 05/12/21 04:35 AST 87 Units/L (15-37) H 05/12/21 04:35 ALT 115 Units/L (12-78) H 05/12/21 04:35 Alkaline Phosphatase 79 Units/L (46-116) 05/12/21 04:35 Creatine Kinase 315 Units/L (26-192) H 05/08/21 20:45 CK-MB (CK-2) 1.9 ng/mL (0-4.0) 05/08/21 20:45 CK/CKMB % Calc 0.6 % (<4) 05/08/21 20:45 Troponin I < 0.02 ng/mL (0-1.5) 05/08/21 20:45 B-Natriuretic Peptide 210 pg/mL (0-79) H 05/08/21 03:10 Total Protein 6.5 g/dL (6.4-8.2) 05/12/21 04:35 Albumin 2.6 g/dL (3.4-5.0) L 05/12/21 04:35 Globulin 3.9 g/dL (2.5-4.5) 05/12/21 04:35 Albumin/Globulin Ratio 0.7 Ratio (1.1-2.1) L 05/12/21 04:35 Specimen Type Catherized urine 05/10/21 05:15 Urine Color Straw (YELLOW) 05/10/21 05:15 Urine Appearance Clear (CLEAR) 05/10/21 05:15 Urine pH 7.0 (5.0 - 8.0) 05/10/21 05:15 Ur Specific [place] 1.010 (1.000-1.030) 05/10/21 05:15 Urine Protein 1+ (NEGATIVE) 05/10/21 05:15 Urine Glucose (UA) Negative (NEGATIVE) 05/10/21 05:15 Urine Ketones Negative (NEGATIVE) 05/10/21 05:15 Urine Occult Blood 2+ (NEGATIVE) 05/10/21 05:15 Urine Nitrite Positive (NEGATIVE) 05/10/21 05:15 Urine Bilirubin Negative (NEGATIVE) 05/10/21 05:15 Urine Urobilinogen Normal (NORMAL) 05/10/21 05:15 Ur Leukocyte Esterase Negative (NEGATIVE) 05/10/21 05:15 Urine RBC 0-2 /HPF (0-3) 05/10/21 05:15 Urine WBC None seen /HPF (0-5) 05/10/21 05:15 Ur Squamous Epith Cells Few /HPF (NEGATIVE) 05/10/21 05:15 Urine Bacteria 2+ /HPF (NEGATIVE) 05/10/21 05:15 Ur Culture Indicated? Yes/culture set up 05/10/21 05:15 Stool Description 15g. brown/unformed 05/11/21 21:01 Stl Occult Blood (IFOB) Negative (NEGATIVE) 05/11/21 21:01 Stool for White Cells Positive (NEGATIVE) A 05/11/21 21:01 SARS-CoV-2 (PCR) Negative (NEGATIVE) 05/08/21 06:10 Influenza Type A (PCR) Negative (NEGATIVE) 05/08/21 06:10 Influenza Type B (PCR) Negative (NEGATIVE) 05/08/21 06:10 RSV (PCR) Negative (NEGATIVE) 05/08/21 06:10 - Plan (1) Hypokalemia Status: Acute Plan: REPLACE. REPEAT LABS IN AM (2) AMS (altered mental status) Status: Acute Qualifiers: Altered mental status type: transient alteration of awareness Qualified Code(s): R40.4 - Transient alteration of awareness Plan: AMS RESOLVED (3) Chronic diarrhea Status: Acute Plan: STOOL STUDIES PENDING. IV FLUIDS. IMMODIUM PRN (4) Generalized weakness Status: Acute Plan: PT REPLACE POTASSIUM
[2021-05-12 12:06] VITALS: BP 133/63
--- NOTE | 2021-05-12 12:37 | CT ---
HISTORYAMSSTUDYBRAIN W/O CONCOMPARISONOctober 2020TECHNIQUEMultiple axial images of the head without contrast. Dose reduction techniques including Automated Exposure Control (AEC) and adjustment of mA and kV were utilized.Contrast: NoneFINDINGSBRAIN PARENCHYMA: No acute hemorrhage, infarct, mass, or mass effect.[place]-white differentiation is maintained.Scattered white matter chronic small vessel ischemic changes.VENTRICLES/EXTRA-AXIAL SPACES: Mild cerebral volume loss with ex vacuo change. No extra-axial fluid collections are identified.EXTRACRANIAL STRUCTURES:Normal bones and soft tissues. Visualized paranasal sinuses and mastoids are clear.IMPRESSIONIntra-axial changes of advancing chronological age without acute intracranial process.Electronically signed by: JANICE WEINSTEIN (May 12, 2021 12:35:29)
== END 2021-05-12 13:25 | DRG 884 ==
LOC: ER 02:44 → MED/SURG 02:44 → OBSVTOIN 07:06 → MED/SURG 08:19
PROVIDERS: ADMIT Internal Medicine; ATTEND Internal Medicine
DX: R26.89 Other abnormalities of gait and mobility; K21.9 Gastro-esophageal reflux disease without esophagitis; R94.31 Abnormal electrocardiogram [ECG] [EKG]; R53.1 Weakness; Z20.822 Contact with and (suspected) exposure to COVID-19; K52.89 Other specified noninfective gastroenteritis and colitis; R40.4 Transient alteration of awareness; E87.6 Hypokalemia; R29.6 Repeated falls; F41.8 Other specified anxiety disorders; I10 Essential (primary) hypertension